=== PATIENT | female | born 1945 | race Caucasian/White ===

== ENCOUNTER 2019-08-07 11:14 | Outpatient (CLI) | payer MEDICARE, OTHER, SELFPAY ==
--- NOTE | ~2019-08-07 | MMUS_ITS ---
EXAMINATION: MM diagnostic mammo unilat RT, US breast RT limited HISTORY: Developing nodular densities reported on 07/16/2019 screening mammogram TECHNIQUE: Additional 3-D tomosynthesis images of the right breast were performed and synthetic 2-D i mages were generated. CAD analysis was submitted and interpreted. High resolution upper inner and upp er outer quadrant right breast ultrasound was performed. COMPARISON: 07/16/2019 bilateral digital screening mammogram FINDINGS: MAMMOGRAPHIC FINDINGS: There is mildly nodular fibroglandular stroma with possible 5 mm or smaller masses in the mid and out er upper right breast. ULTRASOUND: There is a parallel circumscribed sonolucency at 11:00 4 cm from the nipple measuring 4.1 x 1.9 x 3.4 mm, with no internal vascularity, likely a small cyst At 12:00 3 cm from the nipple there is a 2.7 x 1.4 x 3.2 mm parallel circumscribed sonolucency. There is no internal vascularity. This likely a small cyst. No suspicious mass or shadowing is detected. IMPRESSION: 1. No mammographic evidence of malignancy 2. Routine mammographic screening follow-up is recommended. BI-RADS Category 2: Benign finding(s). Reviewed, dictated and finalized at location A. [employer] PROCESSING IMPRESSION: 1. No mammographic evidence of malignancy 2. Routine mammographic screening follow-up is recommended. BI-RADS Category 2: Benign finding(s).
== END 2019-08-07 11:15 | disposition home or self-care (01) ==
LOC: ANHIMG 11:17
PROVIDERS: PCP Internal Medicine; Visit Provider Obstetrics & Gynecology
DX: R92.8 Other abnormal and inconclusive findings on diagnostic imaging of breast (principal)
CPT/HCPCS: 76642; 77065

== ENCOUNTER 2019-12-15 00:27 | Outpatient (CLI) | payer MEDICARE, OTHER, SELFPAY ==
[2019-12-15 17:13] LABS: SARS-CoV-2 RNA PCR Negative
== END 2019-12-15 00:28 | disposition home or self-care (01) ==
LOC: ANHCOVIDDT 00:27
PROVIDERS: PCP Internal Medicine; Visit Provider Internal Medicine Gastroenterology
DX: Z01.812 Encounter for preprocedural laboratory examination (principal); Z11.59 Encounter for screening for other viral diseases
CPT/HCPCS: 87635; C9803; U0003

== ENCOUNTER 2019-12-17 01:36 | Day surgery (SDC) | payer MEDICARE, OTHER, SELFPAY ==
[2019-12-11 12:11] VITALS: BMI 31.1
[2019-12-17 07:40] VITALS: BP 130/68; PULSE 64; RESP 16; TEMP 36.9; O2SAT 100; BMI 32.0
[2019-12-17] MEDS: LACTATED RINGERS 1,000 ML 150 ML IV CONT (08:08)
--- NOTE | 2019-12-17 08:12 | WPDANESEPPF ---
Anes - Initial Pre Proc Eval Procedure: Operation Date: 12/17/19 09:00 Proposed Procedures p Esophagogastroduodenoscopy - Rickey Almendarez MD Date/Time: 12/17/19 08:12 Surgeon: Rickey Almendarez MD Pre Op Diagnosis: Reflux Patient Data Age: 74 Gender: F Height: 1.5 m Weight: 72 kg Last Vital Signs Temp 36.9 C 12/17/19 07:40 Pulse 64 12/17/19 07:40 Resp 16 12/17/19 07:40 BP 130/68 12/17/19 07:40 Pulse Ox 100 12/17/19 07:40 Allergies Allergy/AdvReac Type Severity Reaction Status Date / Time codeine Allergy Unknown Vomiting Verified 12/17/19 07:39 Home Medications Medication Instructions Recorded Confirmed Type biotin 5,000 mcg disintegrating 10,000 mcg PO DAILY 05/01/19 12/11/19 History tablet calcium carbonate 500 mg calcium 500 mg PO DAILY 05/01/19 12/11/19 History (1,250 mg) tablet famotidine 10 mg tablet 10 mg PO DAILY PRN 05/01/19 12/11/19 History furosemide 20 mg tablet 20 mg PO BID #180 tablet 05/01/19 12/11/19 Rx gabapentin 300 mg capsule 300 mg PO DAILY 05/01/19 12/11/19 History levothyroxine 75 mcg tablet 75 mcg PO DAILY #90 tablet 05/01/19 12/11/19 Rx mecobalamin (vitamin B12) 1,000 1,000 mcg SUBLINGUAL DAILY 05/01/19 12/11/19 History mcg disintegrating tablet,sublingual apixaban 2.5 mg tablet 2.5 mg PO BID #180 tablet 05/27/19 12/11/19 Rx omeprazole 40 mg capsule,delayed 40 mg PO DAILY #90 cap 07/31/19 12/11/19 Rx release tramadol 50 mg tablet 50 mg PO QID PRN #120 tablet 11/18/19 12/11/19 Rx Patient hx anesthesia problems: none Family hx anesthesia problems: none PMFSH Past Medical History Medical History (Updated 12/11/19 @ 15:17 by Isabell Christensen NP) Blood clot in vein Bunion, right foot Removed 2013 Cataract 2010 Sgifxzv-Yydho-Azfxl disease Cholecystectomy planned 2007 Chronic back pain Colitis Connective tissue disease Cyst of breast Left breast cyst removed 2003 Cyst of breast Right breast cyst removed 2004 GERD (gastroesophageal reflux disease) H/O one miscarriage History of fracture History of measles, mumps, or rubella Hyperlipidemia Hypertension Hypokalemia Hypothyroidism MRSA (methicillin resistant Staphylococcus aureus) 2013 Osteoarthritis Osteopenia Recurrent UTI Skin disorder SLE (systemic lupus erythematosus) Surgical History Surgical History (Updated 05/01/19 @ 07:24 by Marilin Rodriguez [facility]) H/O Achilles tendon repair Left foot 2010 H/O section 1969 H/O gastric bypass 2015 H/O rotator cuff surgery Right 2008 H/O tubal ligation BL 1980 History of bilateral knee arthroplasty 2004 History of bladder surgery Bladder reconstruction 1968 Previous back surgery 2009 Family History Family History (Updated 04/30/19 @ 16:49 by Marilin Rodriguez CMA) Father Heart disease Mother Liver disease Social History Social History (Updated 05/01/19 @ 10:45 by Marilin Rodriguez CMA) Smoking status: Never smoker Alcohol intake: never Substance use: never Anes - Eval Final PreProcedure Day of Procedure 12/17/19 08:12 Patient weight: obese Heart: regular rate and rhythm Lungs: clear to auscultation and normal air movement Airway: Mallampati scale class 1 Neurological: alert and oriented Last oral intake: >/= 8 hours ASA classification: III Emergent: no Anesthetic plan: proceed Anesthesia type and monitoring: general GIVS and standard monitoring Informed Consent: The patient's anesthetic plan and its attendant risks and benefits were discussed with the patient/family/POA. Questions were solicited and answers provided to the satisfaction of the patient/family/POA.
--- NOTE | 2019-12-17 08:43 | PM.HPGS ---
History of Present Illness History of Present Illness Consent: Risks, benefits, and alternatives have been discussed and questions answered. Patient agrees to proceed with procedure. Chief complaint: Reflux Narrative: Lidia Hwang is a 74 year old W female referred for gastroscopy for evaluation of persistent chronic heartburn. Patient describes this has burning in her chest and the back of her throat. She did have a gastroscopy approximately 2010 which revealed esophagitis. She has been on proton pump inhibitors in the morning and Pepcid in the evening without resolution of her symptoms. She denies any dysphagia odynophagia. She was last Hospital in 2018 for diarrhea she was seen by Dr. corrales at that time a colonoscopy no obvious etiology was identified. Patient is status post gastric bypass with a Shaggy-en-Y procedure in 2014. patient denies any weight loss nausea vomiting hematemesis or melena. 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 [facility] Past Medical History Medical History (Updated 12/11/19 @ 15:17 by Isabell Christensen NP) Blood clot in vein Bunion, right foot Removed 2013 Cataract 2010 Qgpamhu-Baxid-Ntucp disease Cholecystectomy planned 2007 Chronic back pain Colitis Connective tissue disease Cyst of breast Left breast cyst removed 2004 Cyst of breast Right breast cyst removed 2004 GERD (gastroesophageal reflux disease) H/O one miscarriage History of fracture History of measles, mumps, or rubella Hyperlipidemia Hypertension Hypokalemia Hypothyroidism MRSA (methicillin resistant Staphylococcus aureus) 2013 Osteoarthritis Osteopenia Recurrent UTI Skin disorder SLE (systemic lupus erythematosus) Surgical History Surgical History (Updated 05/01/19 @ 07:24 by Marilin Rodriguez CMA) H/O Achilles tendon repair Left foot 2010 H/O section 1968 H/O gastric bypass 2014 H/O rotator cuff surgery Right 2008 H/O tubal ligation BL 1980 History of bilateral knee arthroplasty 2005 History of bladder surgery Bladder reconstruction 1968 Previous back surgery 2009 Family History Family History (Updated 04/30/19 @ 16:49 by Marilin Rodriguez CMA) Father Heart disease Mother Liver disease Social History Social History (Updated 05/01/19 @ 10:45 by Marilin Rodriguez CMA) Smoking status: Never smoker Alcohol intake: never Substance use: never Meds Home Medications and Allergies Home Medications Medication Instructions Recorded Confirmed Type biotin 5,000 mcg disintegrating 10,000 mcg PO DAILY 05/01/19 12/11/19 History tablet calcium carbonate 500 mg calcium 500 mg PO DAILY 05/01/19 12/11/19 History (1,250 mg) tablet famotidine 10 mg tablet 10 mg PO DAILY PRN 05/01/19 12/11/19 History furosemide 20 mg tablet 20 mg PO BID #180 tablet 05/01/19 12/11/19 Rx gabapentin 300 mg capsule 300 mg PO DAILY 05/01/19 12/11/19 History levothyroxine 75 mcg tablet 75 mcg PO DAILY #90 tablet 05/01/19 12/11/19 Rx mecobalamin (vitamin B12) 1,000 1,000 mcg SUBLINGUAL DAILY 05/01/19 12/11/19 History mcg disintegrating tablet,sublingual apixaban 2.5 mg tablet 2.5 mg PO BID #180 tablet 05/27/19 12/11/19 Rx omeprazole 40 mg capsule,delayed 40 mg PO DAILY #90 cap 07/31/19 12/11/19 Rx release tramadol 50 mg tablet 50 mg PO QID PRN #120 tablet 11/18/19 12/11/19 Rx Allergies Allergy/AdvReac Type Severity Reaction Status Date / Time codeine Allergy Unknown Vomiting Verified 12/17/19 07:39 Vital Signs Vital Signs - 24 hr 12/17/19 07:40 Temperature 36.9 C Pulse Rate 64 Respiratory Rate 16 Blood Pressure 130/68 Pulse Oximetry 100 Exam Const: Orientation/consciousness: patient oriented x3 Resp: Auscultation: clear to auscultation bilaterally Cardio: Rate: regular rate Rhythm: regular rhythm Heart sounds: no murmurs GI: GI Palp: Yes Soft to palpation, No Tenderness to palpation present (GI), Yes No hepatosplenomegaly present and No Palpabl
[2019-12-17] MEDS: BENZOCAINE (*SP) 60 ML SPRAY CAN (HURRICAINE) 1 SPRAY MUCOUS MEM (09:27)
[2019-12-17 09:38] VITALS: BP 110/47; PULSE 67; RESP 17; O2SAT 100
[2019-12-17 09:48] VITALS: BP 106/35; PULSE 70; RESP 17; O2SAT 100
[2019-12-17 09:58] VITALS: BP 113/57; PULSE 63; RESP 17; O2SAT 100
== END 2019-12-17 10:30 | disposition home or self-care (01) ==
PROVIDERS: PCP Internal Medicine; Visit Provider Internal Medicine Gastroenterology
PROC: 0DJ08ZZ Inspection of Upper Intestinal Tract, Via Natural or Artificial Opening Endoscopic (ICD-10-PCS; CPT 43235; principal; 2019-12-17 09:00)
DX: K21.9 Gastro-esophageal reflux disease without esophagitis (principal); Z98.84 Bariatric surgery status; I10 Essential (primary) hypertension; E78.5 Hyperlipidemia, unspecified; E03.9 Hypothyroidism, unspecified; M32.9 Systemic lupus erythematosus, unspecified; Z79.01 Long term (current) use of anticoagulants; E66.9 Obesity, unspecified; Z68.32 Body mass index [BMI] 32.0-32.9, adult
CPT/HCPCS: 43235; J2704; J7120

== ENCOUNTER 2020-08-13 15:29 | Outpatient (CLI) | payer MEDICARE, OTHER, SELFPAY ==
--- NOTE | ~2020-08-13 | MM_ITS ---
EXAMINATION: MM screening [facility] [place] HISTORY: Screening TECHNIQUE: Craniocaudal and mediolateral oblique 3-D tomosynthesis images were obtained and synthetic 2-D images were generated. CAD analysis was submitted and interpreted. COMPARISON: Comparison to multiple prior studies sequentially, with oldest reviewed study dated 03/25. BREAST PARENCHYMAL COMPOSITION: Breast composed of scattered areas of fibroglandular density. FINDINGS: There is no evidence of suspicious mass, calcification, or architectural distortion to sugg est malignancy in either breast. There has been no suspicious interval change. IMPRESSION: 1. No mammographic evidence of malignancy. 2. Recommend routine screening mammography in one year. BI-RADS Category 1: Negative Reviewed, dictated and finalized at location A. MANAGER
== END 2020-08-13 15:30 | disposition home or self-care (01) ==
PROVIDERS: PCP Internal Medicine; Visit Provider Internal Medicine
DX: Z12.31 Encounter for screening mammogram for malignant neoplasm of breast (principal)
CPT/HCPCS: 77063; 77067

== ENCOUNTER 2020-09-09 13:41 | Outpatient (CLI) | payer MEDICARE, OTHER, SELFPAY ==
--- NOTE | ~2020-09-09 | DEXA_ITS ---
Bone Density Report Name: Lidia Hwang Age: 75 Sex: Female Ethnicity: White Date of : 1945 Indication: osteopenia; height loss; prior fracture; postmenopausal Referring Provider: Azeb Olmstead Study: Bone densitometry was performed. Exam Date: September 09, 2020 Accession number: [id number] Bone Density: Region BMD T-score Z-score Classification AP Spine (L1, L2, L3) 1.132 1.0 3.3 Normal Femoral Neck (Left) 0.541 -2.8 -0.7 Osteoporosis Total Hip (Left) 0.774 -1.4 0.4 Osteopenia Total Hip Bilateral Avg 0.788 -1.3 0.5 Osteopenia Femoral Neck (Right) 0.560 -2.6 -0.6 Osteoporosis Total Hip (Right) 0.801 -1.2 0.6 Osteopenia World Health Organization criteria for BMD impression classify patients as: Normal (T-score at or above -1.0), Osteopenia (T-score between -1.0 and -2.5), or Osteoporosis (T-score at or below -2.5). 10-year Fracture Risk: FRAX not reported because: Some T-score for Spine Total or Hip Total or Femoral Neck at or below -2.5 Previous Exams: Region Exam Age BMD T-score BMD Change BMD Change Date g/cm2 vs Baseline vs Previous AP Spine(L1, L2, L3) 09/09/2020 75 1.132 1.0 0.099(9.6%)# 0.083(7.9%)* 04/27/2016 70 1.049 0.3 0.017(1.6%)# -0.084(-7.4%)# 10/26/2009 64 1.133 1.0 0.101(9.8%)* 0.088(8.4%)* 06/12/2006 60 1.045 0.2 0.013(1.3%) -0.139(-11.7%) 03/28/2004 58 1.184 1.5 0.152(14.7%)* 0.152(14.7%)* 09/14/2001 56 1.032 0.1 Total Hip(Left) 09/09/2020 75 0.774 -1.4 -0.143(-15.6%) -0.013(-1.6%) 04/27/2016 70 0.787 -1.3 -0.131(-14.3%) -0.006(-0.7%)# 10/26/2009 64 0.793 -1.2 -0.125(-13.6%) -0.046(-5.5%)* 06/12/2006 60 0.839 -0.8 -0.079(-8.6%)* -0.023(-2.7%) 03/28/2004 58 0.862 -0.7 -0.056(-6.1%)* -0.056(-6.1%)* 09/14/2001 56 0.918 -0.2 Total Hip(Right) 09/09/2020 75 0.801 -1.2 -0.185(-18.7%) 0.019(2.4%) 04/27/2016 70 0.782 -1.3 -0.203(-20.6%) -0.075(-8.7%)# 10/26/2009 64 0.857 -0.7 -0.129(-13.1%) -0.020(-2.3%) 06/12/2006 60 0.877 -0.5 -0.109(-11.0%) -0.042(-4.6%)* 03/28/2004 58 0.919 -0.2 -0.067(-6.8%)* -0.067(-6.8%)* 09/14/2001 56 0.986 0.4 *Denotes significance at 95% confidence level, LSC for AP Spine = 0.022 g/cm2, LSC for Total Hip = 0.027 g/cm2 Clinical Information Provided by Patient: Has had a low trauma fracture Has used the following medications: Vitamin D, Calcium Patient maximum height was 60 No regular weight bearing exercise Does not regularly con
== END 2020-09-09 13:42 | disposition home or self-care (01) ==
LOC: ANHIMG 13:44
PROVIDERS: PCP Internal Medicine; Visit Provider Nurse Practitioner
DX: M81.0 Age-related osteoporosis without current pathological fracture (principal); M85.852 Other specified disorders of bone density and structure, left thigh; M85.851 Other specified disorders of bone density and structure, right thigh
CPT/HCPCS: 77080

== ENCOUNTER 2020-09-15 14:21 | Outpatient (CLI) | payer MEDICARE, OTHER, SELFPAY ==
--- NOTE | 2020-09-15 15:06 | ECHO_ITS ---
Patient Info Name: Lidia Hwang Age: 75 years : 1945 Gender: Female Ht: 60 in Wt: 160 lbs BSA: 1.78 m2 HR: 65 bpm BP: 149 / 63 mmHg Heart Rhythm: Sinus Rhythm Technical Quality: Good Exam Date: 09/15/2020 3:29 PM Exam Location: [facility] Patient Status: Outpatient Admit Date: 09/15/2020 Staff Ordering Physician: Azeb Olmstead NP Manufacturing Project Engineer: Shoshana Gasca RDCS Attending Provider: Azeb Olmstead NP Referring Physician: Ishan ELLISON; Exam Type: CA echo doppler color flow Study Info Indications - murmur Complete two-dimensional, color flow and Doppler transthoracic echocardiogram is performed. Summary 1. Complete two-dimensional, color flow and Doppler transthoracic echocardiogram is performed. 2. Normal left ventricular size and thickness with good contractility of all segments. The ejection fraction is 70%. Grade 1 diastolic dysfunction is present. 3. Left atrial chamber dimension is mildly enlarged. 4. There is moderate aortic valve stenosis with a peak velocity of 319 cm/s, mean gradient of 28 mmHg, and aortic valve area of 1.1 cm2. 5. No pulmonary hypertension, estimated pulmonary arterial systolic pressure is 34 mmHg. 6. Normal sinus rhythm. Left Ventricle Left ventricular chamber dimension is normal. Left ventricular systolic function is normal, estimated at 60-65%. There is no increased left ventricular wall thickness. Left ventricular septal wall motion is normal. The left ventricular diastolic function is grade I diastolic dysfunction. Right Ventricle Right ventricular chamber dimension is normal. Right ventricular systolic function is normal. Left Atria Left atrial chamber dimension is mildly enlarged. Right Atria Right atrial chamber dimension is normal. Aortic Valve The aortic valve is trileaflet. There is no aortic valve sclerosis. There is moderate aortic valve stenosis with a peak velocity of 319 cm/s, mean gradient of 28 mmHg, and aortic valve area of 1.1 cm2. There is no aortic valve regurgitation. There is mild aortic valve calcification. Pulmonic Valve The pulmonic valve is normal. There is no pulmonic valve stenosis. There is no pulmonic regurgitation. Mitral Valve The mitral valve has calcified annulus. There is no mitral valve stenosis. There is trace mitral valve regurgitation. Tricuspid Valve The tricuspid valve leaflets are normal. There is no significant tricuspid valve stenosis. There is trace tricuspid valve regurgitation. No pulmonary hypertension, estimated pulmonary arterial systolic pressure is 34 mmHg. Pericardium/Pleural The pericardium appears normal. There is no pericardial effusion. Inferior Vena Cava Normal inferior vena cava with >50% collapse upon inspiration consistent with Empty right atrial pressure, 10 mmHg. Aorta The aortic root size at the sinus of Valsalva is normal. The prox ascending aorta size is normal. There is mild aortic atherosclerosis. Left Ventricular Outflow Tract Name Value Normal LVOT 2D LVOT Diameter 2.0 cm LVOT Doppler LVOT Peak Gradient 6 mm
[2020-09-15 15:09] LABS: Anion Gap 3 mmol/L (8-16); Blood Urea Nitrogen 29 mg/dL (7-17); Calcium 8.6 mg/dL (8.4-10.2); Carbon Dioxide 30 mmol/L (22-30); Chloride 107 mmol/L (98-107); Estimated Glomerular Filt Rate > 60; Glucose 94 mg/dL (65-105); Sodium 140 mmol/L (137-145)
== END 2020-09-15 14:22 | disposition home or self-care (01) ==
LOC: ANHCARD 14:23
PROVIDERS: PCP Internal Medicine; Visit Provider Nurse Practitioner
DX: R01.1 Cardiac murmur, unspecified (principal); I10 Essential (primary) hypertension
CPT/HCPCS: 36415; 80048; 93306

== ENCOUNTER 2020-12-23 12:30 | Outpatient (RCR) | payer MEDICARE, OTHER, SELFPAY ==
--- NOTE | 2020-11-25 13:41 | PTOPEVAL ---
PHYSICAL THERAPY EVALUATION AND PLAN OF CARE 11-25-20 Thank you for referring Lidia Hwang to [facility].? She is scheduled to be seen for therapy? 2 x/week for 4 weeks. Please review, sign, date and return this plan of care OKSANA. I agree with and certify that the following plan of care is medically necessary. Referring Physician Date Attending Provider: Isabell Christensen, CELESTE *PT Outpatient Evaluation Document 11/25/20 12:35 AG (Rec: 11/25/20 13:40 AG [id number]) Past Medical History Source of Past Medical History Recalled from Previous Visit, Confirmed with Patient/Family Neurological History Hx Neurological Disorders No Significant History Cardiovascular History Hx Heart Murmur Yes: monitoring, to follow up with control and recovery special tactics Respiratory History Hx Respiratory Disorders No Significant History Gastrointestinal History Hx Cholecystectomy Yes Hx Colitis Yes Hx Gastric Bypass Surgery Yes Hx Gastroesophageal Reflux Disease Yes Genitourinary History Hx Urinary Tract Infection Yes Hx Other Genitourinary Disorders Yes: BLADDER RECONSTRUCTION Musculoskeletal History Hx Arthritis Yes: hands, feet, back Hx Back Pain Yes Hx Joint Replacement Yes: BILATERAL KNEE Hx Orthopedic Surgery Yes: RIGHT ROTATOR CUFF, B FOOT SURGERY-L achilles tendon &R toe/foot Hx Spinal Surgery Yes: lumbar fusion; Hx Other Musculoskeletal Disorders Yes: Charot Lashay Tooth; R tib fx; Hematological History Hx Other Hematological Disorders Yes: pulmonary embolis-- multiple times-IVC, lung and B LE's-on blood thinner Endocrine History Hx Hypothyroidism Yes HEENT History Hx Cataracts Yes Integumentary History Hx Other Skin Disorders Yes: skin LUPUS Reproductive History Hx Section Yes Hx Tubal Ligation Yes Psychosocial History Hx Psychiatric Disorders No Significant History Pain History History of Any Previous or Ongoing No Significant History Instance of Pain Anesthesia History Hx Post-Op Nausea/Vomiting Yes Other History Hx MRSA Yes Evaluation Information Problem Diagnosis low back pain, gait/imbalance disorder Onset about one year ago Subjective Information chronic back pain since lumbar Query Text:As Reported By Patient/ fusion in 2007; gradual Family increase in pain; had spinal injections by pain management
--- NOTE | 2020-12-21 13:03 | PCPTNOTE ---
Patient called & cancelled scheduled appointment this date due to having a headache and not sleeping well last night.
--- NOTE | 2020-12-23 14:55 | PTOPEVAL ---
PHYSICAL THERAPY DISCHARGE 12-23-20 Refer to the clinical summary below, for her status with today's discharge, compared to the initial evaluation. The goals were partially achieved. Education has been completed for home exercises, posture and pain management techniques. Thank you for referring Lidia Hwang to [facility].? Please review, sign, date and return this Discharge OKSANA. I agree with and certify that the following plan of care is medically necessary. Referring Physician Date Attending Provider: Isabell Christensen NP Document 12/23/20 12:39 AG (Rec: 12/23/20 13:34 AG [id number]) Assessment Status Discharge Subjective Information Lidia reports: back feel Query Text:As Reported By Patient/ about the same, but stronger Family and balance is a little better with walking; have been having problems sleeping, have not slept much at all over the past 2 nights; have not been good to do her exercises at home, they did make her sore and hurt a little more; Pain Assessment Timing of Pain Assessment Timing of Pain Assessment Assessment Pain Scale Pain Scale Used Numeric (1 - 10) Self Report Pain Assessment Bilateral Spine, Lumbar Reported Pain Level 4 Pain Description Aching Pain Radiation Left Leg,Right Leg Radicular Pain Location R & L LE post thigh to knee, sometime in calf Pain Frequency Chronic,Continuous Lowest Pain Intensity 4 Greatest Pain Intensity 8 Pain Aggravating Factors Sitting,Walking,Weight Bearing /Standing Pain Behaviors Anxious,Grimacing,Guarding Pain Score Pain Score 4: Self Report Additional Pain Score Comments Oswestry self assessment score of 44% limitation; reported tolerances with sitting 1 hour and walking 1 block; heat to her back, makes her skin break out; discussed aquatic exercises, pt is not interested in water exercises; discussed HEP, pt reports do not hurt when doing them, but hurts later in day; have not been doing exercises very much because do not want to hurt; at home, doing home task
== END 2020-12-24 10:05 | disposition home or self-care (01) ==
LOC: ANHPT 12:30
PROVIDERS: PCP Internal Medicine; Visit Provider Nurse Practitioner
DX: M54.5 Low back pain (principal); G89.29 Other chronic pain; R26.89 Other abnormalities of gait and mobility
CPT/HCPCS: 97014; 97110; 97140; 97162; G0283

== ENCOUNTER 2021-03-17 18:33 | Emergency (ER) | payer MEDICARE, OTHER, SELFPAY ==
--- NOTE | ~2021-03-17 | CT_ITS ---
EXAMINATION: CT abdomen pelvis wo con DATE: 03/17/2021 20:17 INDICATION: Left flank pain. TECHNIQUE: Computed tomography (CT) of the abdomen and pelvis was performed without intravenous contr ast. Automated exposure control and iterative reconstruction technique were employed. The dose-length product was 562.93 mGy-cm. COMPARISON: 04/06/2019 FINDINGS: Mild bibasilar atelectasis at the posterior sulci. Heart size is normal. No pericardial or pleural ef fusion. Small sliding-type hiatal hernia with change of prior Shaggy-en-Y gastric bypass procedure. A f ew tiny hepatic and splenic calcifications consistent with old granulomatous disease. Unchanged moder ate dilation of the common bile duct and mild intrahepatic or ductal dilation likely related to prior cholecystectomy with surgical clips at the gallbladder fossa. Pancreas, bilateral adrenal glands and right kidney are normal. Cortical scarring at the upper pole of the left kidney with multiple surrou nding surgical clips likely sequela of prior partial nephrectomy. Infrarenal IVC filter. There is mil d colonic diverticulosis with a sigmoid predominance. There is no adjacent inflammatory change to bebee ggest diverticulitis. Small bowel and appendix are normal. Bladder and anteverted uterus are normal. Tiny fat-containing umbilical hernia. No free intraperitoneal gas or fluid. No pathologically enlarge d abdominal or pelvic lymphadenopathy. Chronic mild L1 compression fracture. Moderate lumbar spondylo sis with L3-4 mm anterolisthesis L4 on L5. Combined instrumented anterior and posterior spinal fusion at L5-S1 with bone graft harvest site along the left posterior iliac spine. IMPRESSION: 1. No acute intra-abdominal/pelvic process. 2. Small sliding-type hiatal hernia and changes of prior Shaggy-en-Y gastric bypass procedure. 3. Postoperative change of prior partial left nephrectomy, cholecystectomy and instrumented anterior and posterior L5-S1 spinal fusion. 4. Infrarenal IVC filter. Reviewed, dictated and finalized at location A. IMPRESSION: 1. No acute intra-abdominal/pelvic process. 2. Small sliding-type hiatal hernia and changes of prior Shaggy-en-Y gastric bypa ss procedure. 3. Postoperative change of prior partial left nephrectomy, cholecystectomy and instrumented anterior and posterior L5-S1 spinal fusion. 4. Infrarenal IVC filter.
[2021-03-17 18:44] VITALS: BP 111/86; PULSE 76; RESP 18; TEMP 37.2; O2SAT 100
[2021-03-17 19:09] LABS: Add Urine Microscopic? NO; Appearance Urine Clear (Clear); Bilirubin Urine Negative (Negative); Blood Urine Negative (Negative); Color Urine Yellow (Yellow); Glucose Urine UA Negative (Negative); Ketones Urine Negative (Negative); Leukocyte Esterase Ur Negative LEU/UL (Negative); Nitrate Urine Negative (Negative); Protein Urine Negative (Negative); Specific Grav Ur 1.016 (1.001-1.035); Urobilinogen Urine Negative mg/dL (<2.0)
--- NOTE | 2021-03-17 20:50 | ED.CHESTPAIN ---
HPI - Chest Pain General Chief Complaint: Urogenital-Female Stated Complaint: BLOOD IN URINE Time Seen by Provider: 03/17/21 19:35 Source: patient Mode of arrival: ambulatory Limitations: no limitations History of Present Illness HPI narrative: Patient presents for evaluation of noting blood after urinating prior to arrival. Patient states that 2 days ago she was diagnosed with a UTI and placed on antibiotic. Patient states that she had noted some burning with urination at that time. Patient reports that she began having a pain to her low left flank yesterday and today after urinating she was wiping and noticed blood. Patient denies any fever, chills, nausea, vomiting, diarrhea. Patient denies known history of kidney stones. Patient denies history of irregular vaginal bleeding. Related Data Home Medications Medication Instructions Recorded Confirmed biotin 5,000 mcg disintegrating 10,000 mcg PO DAILY 05/01/19 02/10/21 tablet calcium carbonate 500 mg calcium 500 mg PO DAILY 05/01/19 02/10/21 (1,250 mg) tablet famotidine 10 mg tablet 10 mg PO DAILY PRN 05/01/19 02/10/21 mecobalamin (vitamin B12) 1,000 1,000 mcg SUBLINGUAL DAILY 05/01/19 02/10/21 mcg disintegrating tablet,sublingual valacyclovir 1 gram tablet 1,000 mg PO DAILY 02/10/21 02/10/21 Allergies Allergy/AdvReac Type Severity Reaction Status Date / Time codeine Allergy Unknown Vomiting Verified 03/17/21 19:58 nitrofurantoin Allergy Sweating Verified 03/17/21 19:58 and Hives Review of Systems Review of Systems: CONSTITUTIONAL: Denies fever, chills, or sweats. EYES: Denies visual changes, redness, or discharge. ENT: Denies rhinorrhea, congestion, sore throat, or otalgia. CARDIOVASCULAR: Denies chest pain, palpitations, or edema. RESPIRATORY: Denies cough or dyspnea. GASTROINTESTINAL: Denies abdominal pain, nausea, vomiting, or diarrhea. GENITOURINARY: Reports dysuria or hematuria. SKIN: Denies rash or itching. MUSCULOSKELETAL: Denies back pain, joint pain, or myalgia. NEUROLOGIC: Denies headache, numbness, dizziness, or weakness. PSYCHIATRIC: Denies anxiety or depression. [facility] Past Medical History Medical History Blood clot in vein Bunion, right foot Removed 2013 Cataract 2011 Yrvslfb-Yezup-Yrydd disease Cholecystectomy planned 2007 Chronic back pain Colitis Connective tissue disease Cyst of breast Left breast cyst removed 2003 Cyst of breast Right breast cyst removed 2004 GERD (gastroesophageal reflux disease) H/O one miscarriage History of fracture History of measles, mumps, or rubella Hyperlipidemia Hypertension Hypokalemia Hypothyroidism MRSA (methicillin resistant Staphylococcus aureus) 2013 Osteoarthritis Osteopenia Recurrent UTI Skin disorder SLE (systemic lupus erythematosus) Surgical History Surgical History (Updated 05/01/19 @ 07:24 by Marilin Mai [facility]) H/O Achilles tendon repair Left foot 2010 H/O section 1968 H/O gastric bypass 2014 H/O rotator cuff surgery Right 2008 H/O tubal ligation BL 1980 History of bilateral knee arthroplasty 2004 History of bladder surgery Bladder reconstruction 1968 Previous back surgery 2009 Family History Family History Father Heart disease Mother Liver disease Social History Social History Smoking status: Never smoker Second hand tobacco smoke exposure: No Alcohol intake: never Substance use: never Gender identity (if verbalized by the patient): Female Sexual Orientation (if Verbalized by the Patient): Straight or Heterosexual Spiritual care concerns: No Exam Narrative: GENERAL: Well-appearing, well-nourished, and in no acute distress. HEAD: Normocephalic, atraumatic. EYES: PERRLA and EOMI. NECK: Supple. No adenopathy or masses. CHEST: Clear to auscultation. No
[2021-03-17 21:13] VITALS: BP 110/84; PULSE 78; RESP 18; O2SAT 100
== END 2021-03-17 21:14 | disposition home or self-care (01) ==
PROVIDERS: Emergency Provider Emergency Medicine; PCP Urology
DX: N30.01 Acute cystitis with hematuria (principal); G60.0 Hereditary motor and sensory neuropathy; K21.9 Gastro-esophageal reflux disease without esophagitis; E78.5 Hyperlipidemia, unspecified; I10 Essential (primary) hypertension; Z86.14 Personal history of Methicillin resistant Staphylococcus aureus infection; M85.80 Other specified disorders of bone density and structure, unspecified site; M19.90 Unspecified osteoarthritis, unspecified site; Z87.440 Personal history of urinary (tract) infections; M32.9 Systemic lupus erythematosus, unspecified; Z98.84 Bariatric surgery status; K44.9 Diaphragmatic hernia without obstruction or gangrene
CPT/HCPCS: 74176; 81003; 99284

== ENCOUNTER 2021-08-15 14:25 | Outpatient (CLI) | payer MEDICARE, OTHER, SELFPAY ==
--- NOTE | ~2021-08-15 | MM_ITS ---
EXAMINATION: MM screening [facility] BI w venita HISTORY: Screening mammogram TECHNIQUE: Craniocaudal and mediolateral oblique 3-D tomosynthesis images were obtained and synthetic 2-D images were generated. CAD analysis was submitted and interpreted. COMPARISON: August 13, 2020 bilateral screening mammogram August 07, 2019 diagnostic right mammogram and limited right breast ultrasound July 16, 2019, 06/20/2018 bilateral screening mammogram examinations BREAST PARENCHYMAL COMPOSITION: There are scattered areas of fibroglandular density. FINDINGS: Again noted are multiple scattered bilateral benign calcifications. There is no evidence of suspicious mass, calcification, or architectural distortion to suggest malignancy in either breast. There has been no suspicious interval change. IMPRESSION: 1. No mammographic evidence of malignancy. 2. Recommend routine screening mammography in one year. BI-RADS Category 2: Benign finding(s). Reviewed, dictated and finalized at location A. ER STACKER
== END 2021-08-15 14:26 | disposition home or self-care (01) ==
LOC: ANHIMG 14:26
PROVIDERS: PCP Internal Medicine; Visit Provider Nurse Practitioner Obstetrics & Gynecology
DX: Z12.31 Encounter for screening mammogram for malignant neoplasm of breast (principal)
CPT/HCPCS: 77063; 77067

== ENCOUNTER 2021-08-22 12:44 | Outpatient (CLI) | payer MEDICARE, OTHER, SELFPAY ==
[2021-08-22 13:52] LABS: Basophils Percent Auto 0.7 % (0.2-1.2); Eosinophils Absolute Auto 0.1 K/mm3 (0-0.3); Eosinophils Percent Auto 0.8 % (0-4.4); Hematocrit 33.7 % (37.0-47.0); Hemoglobin 10.3 g/dL (12.0-15.0); Immature Granulocyte Absolute 0.01 K/mm3 (0.00-0.031); Immature Granulocyte Percent A 0.2 % (0-0.5); Lymphocytes Absolute Auto 0.97 K/mm3 (0.9-3.2); Lymphocytes Percent Auto 16.1 % (18.3-44.2); Mean Corpuscular HGB Conc 30.6 g/dl (32-36); Mean Corpuscular Hemoglobin 28.5 pg (26-34); Mean Corpuscular Volume 93.4 fl (80-100); Mean Platelet Volume 11.3 fl (7.4-10.4); Monocytes Absolute Auto 0.4 K/mm3 (0.1-0.6); Monocytes Percent Auto 6.8 % (2.6-8.5); Neutrophils Absolute Auto 4.5 K/mm3 (1.3-6.7); Neutrophils Percent Auto 75.4 % (45.5-73.1); Platelet Count Result 260 k/mm3 (150-375); Red Blood Count 3.61 M/mm3 (4.2-5.4); Red Cell Distribution Width 18.2 % (11.5-14.5)
[2021-08-22 14:23] LABS: Vitamin D 25 Hydroxy 50.1 ng/mL
[2021-08-22 22:06] LABS: Iron 39 ug/dL (37-170)
[2021-08-22 22:12] LABS: Percent Iron Saturation 9 % (20-50)
[2021-08-23 22:52] LABS: PCP NEGATIVE ng/mL (<25)
[2021-08-25 15:26] LABS: Amphetamines NEGATIVE; Marijuana Metabolites NEGATIVE
[2021-08-25 15:27] LABS: Barbiturates NEGATIVE; Benzodiazepines NEGATIVE; Cocaine Metabolites NEGATIVE
== END 2021-08-22 12:45 | disposition home or self-care (01) ==
LOC: ANHLAB 12:52
PROVIDERS: PCP Internal Medicine; Visit Provider Nurse Practitioner
DX: D64.9 Anemia, unspecified (principal); D72.819 Decreased white blood cell count, unspecified; E55.9 Vitamin D deficiency, unspecified; M81.0 Age-related osteoporosis without current pathological fracture
CPT/HCPCS: 36415; 80307; 82306; 82728; 83540; 83550; 85025

== ENCOUNTER 2021-09-01 14:10 | Outpatient (CLI) | payer MEDICARE, OTHER, SELFPAY ==
[2021-09-01 15:54] LABS: Folic Acid > 20.0 ng/mL (2.76->20); Vitamin B12 > 1000.0 pg/mL (239-931)
== END 2021-09-01 14:11 | disposition home or self-care (01) ==
PROVIDERS: PCP Internal Medicine; Visit Provider Nurse Practitioner
DX: D64.9 Anemia, unspecified (principal)
CPT/HCPCS: 36415; 82607; 82746

== ENCOUNTER 2021-11-28 11:26 | Outpatient (CLI) | payer MEDICARE, OTHER, SELFPAY ==
[2021-11-28 12:06] LABS: Basophils Percent Auto 1.3 % (0.2-1.2); Eosinophils Absolute Auto 0.1 K/mm3 (0-0.3); Eosinophils Percent Auto 1.9 % (0-4.4); Hematocrit 37.5 % (37.0-47.0); Hemoglobin 11.9 g/dL (12.0-15.0); Immature Granulocyte Absolute 0.01 K/mm3 (0.00-0.031); Immature Granulocyte Percent A 0.3 % (0-0.5); Lymphocytes Percent Auto 28.5 % (18.3-44.2); Mean Corpuscular HGB Conc 31.7 g/dl (32-36); Mean Corpuscular Volume 97.7 fl (80-100); Mean Platelet Volume 10.6 fl (7.4-10.4); Monocytes Absolute Auto 0.3 K/mm3 (0.1-0.6); Monocytes Percent Auto 7.9 % (2.6-8.5); Neutrophils Absolute Auto 1.9 K/mm3 (1.3-6.7); Neutrophils Percent Auto 60.1 % (45.5-73.1); Platelet Count Result 229 k/mm3 (150-375); Red Blood Count 3.84 M/mm3 (4.2-5.4); Red Cell Distribution Width 17.6 % (11.5-14.5); White Blood Count 3.2 K/mm3 (4.5-10.0)
== END 2021-11-28 11:27 | disposition home or self-care (01) ==
PROVIDERS: PCP Internal Medicine; Visit Provider Nurse Practitioner
DX: D64.9 Anemia, unspecified (principal)
CPT/HCPCS: 36415; 82728; 85025

== ENCOUNTER 2022-02-13 14:52 | Outpatient (CLI) | payer MEDICARE, OTHER, SELFPAY ==
[2022-02-13 15:16] LABS: Basophils Absolute Auto 0.1 K/mm3 (0.0-0.1); Eosinophils Percent Auto 0.4 % (0-4.4); Hematocrit 39.2 % (37.0-47.0); Hemoglobin 12.7 g/dL (12.0-15.0); Immature Granulocyte Absolute 0.01 K/mm3 (0.00-0.031); Immature Granulocyte Percent A 0.2 % (0-0.5); Lymphocytes Absolute Auto 1.05 K/mm3 (0.9-3.2); Lymphocytes Percent Auto 21.4 % (18.3-44.2); Mean Corpuscular HGB Conc 32.4 g/dl (32-36); Mean Corpuscular Hemoglobin 32.2 pg (26-34); Mean Corpuscular Volume 99.5 fl (80-100); Monocytes Absolute Auto 0.3 K/mm3 (0.1-0.6); Monocytes Percent Auto 6.3 % (2.6-8.5); Neutrophils Absolute Auto 3.5 K/mm3 (1.3-6.7); Neutrophils Percent Auto 70.7 % (45.5-73.1); Platelet Count Result 250 k/mm3 (150-375); Red Blood Count 3.94 M/mm3 (4.2-5.4); Red Cell Distribution Width 15.8 % (11.5-14.5); White Blood Count 4.9 K/mm3 (4.5-10.0)
[2022-02-13 15:25] LABS: Alanine Aminotransferase 13 U/L (6-35); Albumin Level 3.2 g/dL (3.5-5.1); Alkaline Phosphatase 91 U/L (38-126); Anion Gap 2 mmol/L (8-16); Aspartate Amino Transferase 22 U/L (14-36); Blood Urea Nitrogen 17 mg/dL (7-17); Calcium 8.6 mg/dL (8.4-10.2); Carbon Dioxide 32 mmol/L (22-30); Chloride 102 mmol/L (98-107); Estimated Glomerular Filt Rate > 60; Glucose 95 mg/dL (65-110); Potassium 3.8 mmol/L (3.4-5.0); Sodium 136 mmol/L (137-145)
[2022-02-13 15:55] LABS: Iron 58 ug/dL (37-170)
[2022-02-13 16:04] LABS: Percent Iron Saturation 21 % (20-50)
[2022-02-13 16:32] LABS: Folic Acid > 20.0 ng/mL (2.76->20); Vitamin B12 > 1000.0 pg/mL (239-931)
[2022-02-18 22:39] LABS: Anti Nuclear Antibody Pattern Nuclear, Speckled
== END 2022-02-13 14:53 | disposition home or self-care (01) ==
PROVIDERS: PCP Internal Medicine; Visit Provider Internal Medicine Hematology & Oncology
DX: D72.819 Decreased white blood cell count, unspecified (principal); D64.9 Anemia, unspecified
CPT/HCPCS: 36415; 80053; 82607; 82728; 82746; 83540; 83550; 85025; 86038; 86039

== ENCOUNTER 2022-02-22 09:02 | Outpatient (CLI) | payer MEDICARE, OTHER, SELFPAY ==
--- NOTE | ~2022-02-22 | US_ITS ---
EXAMINATION: US abdomen complete DATE: 02/22/2022 09:56 INDICATION: Leukopenia TECHNIQUE: Multiple grayscale and Doppler ultrasound images of the abdomen were obtained. COMPARISON: CT, 03/17/2021 FINDINGS: Bowel gas obscures visualization of the pancreas. The visualized portions of the pancreas a re unremarkable. The liver demonstrates increased echogenicity, heterogenous echotexture, and decreas ed through transmission. No surface nodularity. Normal hepatopetal flow in the main portal vein. The gallbladder is surgically absent. The normal common bile duct measures 7 mm. The visualized portions of the aorta and inferior vena cava are normal. The right kidney measures 10.7 x 3.6 x 4.3 cm. The left kidney measures 9.8 x 4.7 x 5.4 cm. The kidne ys demonstrate normal parenchymal echogenicity. There is no hydronephrosis. The spleen is normal in a ppearance and measures 11.4 cm. IMPRESSION: 1. Diffuse hepatic steatosis. Reviewed, dictated and finalized at location A.
== END 2022-02-22 09:03 | disposition home or self-care (01) ==
PROVIDERS: PCP Internal Medicine; Visit Provider Internal Medicine Hematology & Oncology
DX: D72.819 Decreased white blood cell count, unspecified (principal); K76.0 Fatty (change of) liver, not elsewhere classified
CPT/HCPCS: 76700

== ENCOUNTER 2022-06-12 12:30 | Outpatient (RCR) | payer MEDICARE, OTHER, SELFPAY ==
--- NOTE | 2022-05-15 16:15 | PTOPEVAL1 ---
Assessment and note entered by Damien Lux, PT Evaluation Information Assessment Status Evaluation Diagnosis other abnormalities of gait and mobility Onset chronic Subjective Information Patient reports she has had decreased sensation on TERE LE for a while, but with the back and sciatica pain it is making it harder to walk around. She does use a straight cane to get around for longer distances and reports she feels more secure and in less pain with it, but she does not want to appear old. She reports increase in symptoms when busy like she was last week with her holiday decorating. Trouble sleeping and does use tramadol and a topical rub to help with the pain. Reported Pain Level Pain Score 1: Self Report Additional Pain Score Comments although she reports it is from her back she is having the achiness in her legs especially mid- thighs Assessment PT Clinical Summary Merritt is a 76 year old female coming into the clinic with TERE sciatic pain worse on the R side. She also demonstrates decreased balance with 0/10 [place] monofilament testing, a 20/28 Tinetti and Dynamic gait index score of 13/24. Patient has tight hamstrings and IT bands that need to be stretches out along with back, abdominal, and hip strengthening. I believe physical therapy can help reduce the patient's pain with stretching, modalities, and manual therapy along with stretching and strengthening to keep the patient's body in better alignment. Patient also would benefit from education on potential orthotic and assistive device to help with balance and take pressure off of the back. Plan of Care Interventions Check Out for Orthotic/Pr,Electrical Stimulation, Gait Training,Hot Pack/Cold Pack,Manual Therapy, Mechanical Traction,Neuro Re-education,Patient/ Caregiver Education,Therapeutic Activities, Therapeutic Exercise,Ultrasound PT Services Indicated Yes Treatment Frequency and 1-2x/wk 4 weeks Duration These treatments will address the objective and functional deficits as defined above. The patient will be advanced safely and appropriately in order for the patient to progress towards his/her prior level of function. Additional exercises will be introduced and as well as a comprehensive home exercise program upon discharge, if needed, ?to ensure carryover of functional gains achieved in the clinic. This treatment plan has been reviewed and agreement upon by the patient.
--- NOTE | 2022-06-12 13:58 | PTOPDC ---
Assessment and note entered by Damien Lux, PT Evaluation Information Assessment Status Discharge Diagnosis abnormalities of gait and mobility Onset chronic Subjective Information Lidia reports the pain is a little better but still there. She reports she is doing better with energy conservation to not overdo too much at one time. Patient also more receptive to using her can when out instead of walking without it. Patient admits pain is decreased and balance is better with cane. Reports manual is helping her feel better, but seeing minimal benefit from the exercises. Reported Pain Level Pain Score 7: Self Report Assessment PT Clinical Summary Lidia is a 76 year old female coming into the clinic for balance and low back pain. She was evaluated on May 15 and attended 5 sessions . During that time her hip extension improved to 4+/5, but minimal improvement in pain or hamstring length. She does report improved balance since working on exercises and most importantly does appear okay with using her cane to get around more . At this time, may be a prudent idea to have her continue working on her home exercise program, but have her see an orthopedic MD about injections in her greater trochanteric bursa to help with pain. Discharge from skilled physical therapy at this time. Plan of Care PT Services Indicated No Treatment Frequency and discharged from physical therapy Duration
== END 2022-06-12 15:47 | disposition home or self-care (01) ==
LOC: ANHPT 12:30
PROVIDERS: PCP Internal Medicine; Visit Provider Nurse Practitioner
DX: R26.89 Other abnormalities of gait and mobility (principal)
CPT/HCPCS: 97110; 97140; 97162

== ENCOUNTER 2022-08-18 11:34 | Outpatient (CLI) | payer MEDICARE, OTHER, SELFPAY ==
[2022-08-18 18:53] LABS: Alanine Aminotransferase 16 U/L (6-35); Albumin Level 3.7 g/dL (3.5-5.1); Alkaline Phosphatase 81 U/L (38-126); Anion Gap 2 mmol/L (8-16); Aspartate Amino Transferase 29 U/L (14-36); Blood Urea Nitrogen 20 mg/dL (7-17); Calcium 8.8 mg/dL (8.4-10.2); Carbon Dioxide 31 mmol/L (22-30); Chloride 103 mmol/L (98-107); Cholesterol 205 mg/dL (0-200); Estimated Glomerular Filt Rate > 60; Glucose 83 mg/dL (65-110); HDL Direct 82 mg/dL; Potassium 3.8 mmol/L (3.4-5.0); Sodium 136 mmol/L (137-145); Triglycerides 127 mg/dL (<150)
[2022-08-18 19:03] LABS: LDL Cholesterol Direct 91 mg/dL
[2022-08-18 19:17] LABS: Vitamin D 25 Hydroxy 45.7 ng/mL
[2022-08-21 18:58] LABS: PCP NEGATIVE ng/mL (<25)
[2022-08-22 15:53] LABS: Amphetamines Negative; Barbiturates Negative; Benzodiazepines Negative; Cocaine Metabolites Negative; Marijuana Metabolites Negative
== END 2022-08-18 11:35 | disposition home or self-care (01) ==
LOC: ANHGOSHLAB 11:35
PROVIDERS: PCP Internal Medicine; Visit Provider Nurse Practitioner
DX: E03.9 Hypothyroidism, unspecified (principal); E55.9 Vitamin D deficiency, unspecified; E66.9 Obesity, unspecified; M79.10 Myalgia, unspecified site; F11.90 Opioid use, unspecified, uncomplicated
CPT/HCPCS: 36415; 80053; 80061; 80307; 82306; 84443

== ENCOUNTER 2022-11-01 14:38 | Outpatient (CLI) | payer MEDICARE, OTHER, SELFPAY ==
--- NOTE | ~2022-11-01 | MM_ITS ---
EXAMINATION: MM screening [facility] BI w venita HISTORY: Screening mammogram TECHNIQUE: Craniocaudal and mediolateral oblique 3-D tomosynthesis images were obtained and synthetic 2-D images were generated. CAD analysis was submitted and interpreted. COMPARISON: 08/15/2021, 08/13/2020, 08/07/2019, 07/16/2019 BREAST PARENCHYMAL COMPOSITION: There are scattered areas of fibroglandular density. FINDINGS: No suspicious mass, calcification, or architectural distortion are identified in either jolie ast to suggest malignancy. There has been no suspicious interval change. IMPRESSION: 1. No mammographic evidence of malignancy. 2. Recommend routine screening mammography in one year. BI-RADS Category 1: Negative Reviewed, dictated and finalized at location A.
--- NOTE | ~2022-11-01 | DEXA_ITS ---
Bone Density Report Name: AMIRA DUMONT Age: 77 Sex: Female Ethnicity: White Date of : 1945 Indication: osteopenia; height loss; prior fracture; postmenopausal Referring Provider: KINJAL MASTERSON Study: Bone densitometry was performed. Exam Date: November 01, 2022 Accession number: [id number] Bone Density: Region BMD T-score Z-score Classification AP Spine(L1, L2, L3) 1.209 1.7 4.2 Normal Femoral Neck (Left) 0.601 -2.2 -0.1 Osteopenia Total Hip (Left) 0.759 -1.5 0.4 Osteopenia Femoral Neck (Right) 0.572 -2.5 -0.4 Osteoporosis Total Hip (Right) 0.751 -1.6 0.3 Osteopenia Total Hip Mean 0.755 -1.6 0.4 Osteopenia World Health Organization criteria for BMD impression classify patients as: Normal (T-score at or above -1.0), Osteopenia (T-score between -1.0 and -2.5), or Osteoporosis (T-score at or below -2.5). 10-year Fracture Risk: FRAX not reported because: Some T-score for Spine Total or Hip Total or Femoral Neck at or below -2.5 Previous Exams: Region Exam Age BMD T-score BMD Change BMD Change Date g/cm2 vs Baseline vs Previous AP Spine (L1-L3) 11/01/2022 77 1.209 1.7 0.159 (15.2%)* 0.077 (6.8%)* 09/09/2020 75 1.132 1.0 0.083 (7.9%)* 0.083 (7.9%)* 04/27/2016 70 1.049 0.3 Total Hip(Left) 11/01/2022 77 0.759 -1.5 -0.028 (-3.5%) -0.015 (-2.0%) 09/09/2020 75 0.774 -1.4 -0.013 (-1.6%) -0.013 (-1.6%) 04/27/2016 70 0.787 -1.3 Total Hip(Right) 11/01/2022 77 0.751 -1.6 -0.032 (-4.0%) -0.050 (-6.3%) 09/09/2020 75 0.801 -1.2 0.019 (2.4%) 0.019 (2.4%) 04/27/2016 70 0.782 -1.3 *Denotes significance at 95% confidence level, LSC for AP Spine = 0.022 g/cm2, LSC for Total Hip = 0.027 g/cm2 Clinical Information Provided by Patient: Has had a low trauma fracture Has used the following medications: Calcium Patient maximum height was 60.5 Menopause Age: 54 No regular weight bearing exercise Does not regularly consume dairy products Onset of menses at age 13 Number of children 1 Impression: The patient has established osteoporosis, based on the Right Femoral Neck T-score and the existence of a prior fracture. The patient has risk factors, including: previous fracture. The BMD for the Total Hip(Right) decreased, changing by -6.3% since the last DXA exam. Discussion: HIGH RISK OF FRACTURE. BONE DENSITY IS UNDESIRABLY LOW AT ONE OR MORE SKELETAL SITES, CONSISTENT WITH POSTMENOPAUSAL OSTEOPOROSIS.
== END 2022-11-01 14:39 | disposition home or self-care (01) ==
LOC: ANHIMG 14:40
PROVIDERS: PCP Internal Medicine; Visit Provider Nurse Practitioner
DX: Z12.31 Encounter for screening mammogram for malignant neoplasm of breast (principal); M81.0 Age-related osteoporosis without current pathological fracture; M85.852 Other specified disorders of bone density and structure, left thigh; M85.851 Other specified disorders of bone density and structure, right thigh
CPT/HCPCS: 77063; 77067; 77080

== ENCOUNTER 2023-06-28 11:00 | Outpatient (RCR) | payer MEDICARE, OTHER, SELFPAY ==
--- NOTE | 2023-05-23 14:51 | PTOPEVAL1 ---
Assessment and note entered by Cirilo Riley Evaluation Information Assessment Status Evaluation Diagnosis lumbar radiculpathy Onset 11/20/22 Subjective Information Pt. reports having back and right leg pain for the past 6 months. She reports that pain will radiate into the right thigh and occasionally into the right lower leg. She reports that she can develop the same pain into the left l.e., but pain is most noticable on the right. She reports that the pain is the worst at night. She states that pain can be increased with prolonged periods of sitting or standing. She states that she is currently using a cane due to her pain and feeling her that she is unsteady. She reports that she continues to do all her regular housework, however is slower and pain develops with these activities . She reports that her goal is to reduce her pain and improve her steadiness. Reported Pain Level Pain Score 5: Self Report Assessment PT Clinical Summary Pt. is a 77 year old female who enters the clinic with lumbar radiculopathy. She presents with bilateral l.e. weakness, impaired gait, impaired lumbar mobility, pain and functional decline. Continued skilled PT is indicated in order to improve these areas to allow the pt. to achieve her goal of improved comfort with IADL performance . Plan of Care Interventions Electrical Stimulation,Hot Pack/Cold Pack,Manual Therapy,Neuro Re-education,Patient/Caregiver Educati,Therapeutic Activities,Therapeutic Exercise PT Services Indicated Yes Treatment Frequency and 2x/week x 10 visits Duration These treatments will address the objective and functional deficits as defined above. The patient will be advanced safely and appropriately in order for the patient to progress towards his/her prior level of function. Additional exercises will be introduced and as well as a comprehensive home exercise program upon discharge, if needed, ?to ensure carryover of functional gains achieved in the clinic. This treatment plan has been reviewed and agreement upon by the patient.
--- NOTE | 2023-05-23 14:52 | OPREHPOC ---
Outpatient Therapy Plan of Care This is a Multidisciplinary Plan of Care that may contain components documented by all disciplines (PT, OT, and ST.) PT Problem 1 PT Problem #1 Knowledge Deficit PT Goal 1 Goal Pt. will be independent with a HEP addressing core strength and trunk mobility. Target Visit 2 PT Problem 2 PT Problem #2 Impaired Range of Motion PT Goal 1 Goal Pt. will demonstrate the ability to safely reach to the floor to lift small objects for 5-10 reps Target Visit 10 PT Problem 3 PT Problem #3 Impaired Balance PT Goal 1 Goal Pt. will improve her tinetti score to 19 or greater indicating improved safety PT Problem 4 PT Problem #4 Impaired Functional Mobil PT Goal 1 Goal Pt. will improve her Oswestry score to 40% or less indicating improve function and safety. Target Visit 10 PT Problem 5 PT Problem #5 Impaired Gait PT Goal 1 Goal Pt. will demonstrate ability to complete the 6 minute walk test with improved stride length demonstrating the ability for the swing phase extremity to pass the stance phase extremity with use of a standard cane over a distance of 600' or greater. Target Visit 10 PT Goal 2 Goal Pt. will report pain levels at 7/10 at worst with prolonged standing activities. Target Visit 10
--- NOTE | 2023-06-28 12:07 | PTOPDC ---
Assessment and note entered by Cirilo Riley Discharge Information Assessment Status Discharge Diagnosis lumbar radiculopathy Onset 11/20/22 Subjective Information Pt. reports she is doing much better. She reports that her right sided buttock pain is less intense . She reports pain is most notable in the evenings. She states that she is walking better and pleased with her progress. She reports she will continue with exercise at home and is ready for discharge. Reported Pain Level Pain Score 1: Self Report Assessment PT Clinical Summary Pt. demonstrates improvement in gait, strength and pain reports. She still presents with pain, but much less intense. Pt. has 10% improvement in her Oswestry. At this time recommend pt. continue with her HEP and she will be discharge from our care. Plan of Care PT Services Indicated Yes
== END 2023-06-28 12:49 | disposition home or self-care (01) ==
LOC: ANHPT 11:00
PROVIDERS: PCP Internal Medicine; Visit Provider Nurse Practitioner
DX: M54.16 Radiculopathy, lumbar region (principal)
CPT/HCPCS: 97014; 97110; 97140; 97161; 97530; G0283

== ENCOUNTER 2023-11-15 12:33 | Outpatient (CLI) | payer MEDICARE, OTHER, SELFPAY ==
[2023-11-15 13:47] LABS: Cholesterol 200 mg/dL (0-200); HDL Direct 79 mg/dL; Triglycerides 124 mg/dL (<150)
[2023-11-15 13:58] LABS: LDL Cholesterol Direct 100 mg/dL
[2023-11-15 14:04] LABS: Vitamin D 25 Hydroxy 51.5 ng/mL
[2023-11-17 10:53] LABS: Amphetamines NEGATIVE ng/mL (<500); Barbiturates NEGATIVE ng/mL (<300); Benzodiazepines NEGATIVE ng/mL (<100); Cocaine Metabolite NEGATIVE ng/mL (<150); Marijuana Metabolite NEGATIVE ng/mL (<20); Methadone Metabolite NEGATIVE ng/mL (<100); Opiates NEGATIVE ng/mL (<100); Oxidant NEGATIVE mcg/mL (<200); pH 8.3 (4.5-9.0)
== END 2023-11-15 12:34 | disposition home or self-care (01) ==
LOC: ANHLAB 12:36
PROVIDERS: PCP Internal Medicine; Visit Provider Nurse Practitioner
DX: E03.9 Hypothyroidism, unspecified (principal); E66.9 Obesity, unspecified; R11.0 Nausea; R53.83 Other fatigue; F11.90 Opioid use, unspecified, uncomplicated; M79.10 Myalgia, unspecified site; K21.9 Gastro-esophageal reflux disease without esophagitis; E55.9 Vitamin D deficiency, unspecified
CPT/HCPCS: 36415; 80061; 80307; 82306; 84443

== ENCOUNTER 2023-12-06 07:24 | Outpatient (CLI) | payer MEDICARE, OTHER, SELFPAY ==
--- NOTE | ~2023-12-06 | NM_ITS ---
EXAM: NM gastric emptying study DATE: 12/06/2023 12:18 CDT INDICATION: Nausea TECHNIQUE: A gastric emptying study was performed using the methodology of Bunny RAMIREZ, et al. J Nucl Med 2007; 48:568-572. The patient was given a meal consisting of 2 scrambled eggs labeled with mCi T c-99m sulfur colloid, 2 slices of toast, two packages of jam, and approximately 120 mL of water. Simu ltaneous anterior and posterior 1-min images of the abdomen were obtained with the patient supine at multiple time points over a total period of 4 hours. The geometric mean of anterior and posterior vie ws was determined, and the percentage retention was calculated for each time point. COMPARISON: None. FINDINGS: Gastric retention of the radiotracer-labeled meal was 70%, 53%, and 20% at the 1-hour, 2-h our, and 4-hour time points, respectively. With this technique, apparent rapid gastric emptying is beebe ggested by <30% gastric retention at 1 hour. Delayed gastric emptying is defined by gastric retention of >90% at 1 hour, >60% retention at 2 hours, or >10% retention at 4 hours. IMPRESSION: 1. Delayed gastric emptying. Reviewed, dictated and finalized at location B.
== END 2023-12-06 07:25 | disposition home or self-care (01) ==
PROVIDERS: PCP Internal Medicine; Visit Provider Nurse Practitioner Family
DX: K30 Functional dyspepsia (principal)
CPT/HCPCS: 78264; A9541

== ENCOUNTER 2023-12-15 09:20 | Outpatient (CLI) | payer MEDICARE, OTHER, SELFPAY ==
--- NOTE | ~2023-12-15 | XR_ITS ---
XR UGI w barium swallow DATE: 12/15/2023 10:11 INDICATION: Nausea. History of gastric bypass surgery 9 years ago TECHNIQUE: Single contrast barium swallow and upper gastrointestinal series COMPARISON: None FINDINGS: There are tertiary contractions of esophagus consistent with presbyesophagus. No persistent stricture or intraluminal mass lesion, diverticula, or ulceration of the esophagus is evident. The gastric remnant is unremarkable. No stricture, intraluminal mass lesion or obstruction is evident . Proximal small bowel mucosal pattern appears normal. IMPRESSION: Presbyesophagus Status post gastric bypass surgery; no obstruction Reviewed, dictated and finalized at Location A. Reviewed, dictated and finalized at location A.
== END 2023-12-15 09:21 | disposition home or self-care (01) ==
PROVIDERS: PCP Internal Medicine; Visit Provider Nurse Practitioner Family
DX: R11.0 Nausea (principal); K22.89 Other specified disease of esophagus
CPT/HCPCS: 74240

== ENCOUNTER 2023-12-19 12:40 | Outpatient (CLI) | payer MEDICARE, OTHER, SELFPAY ==
[2023-12-19 13:30] LABS: Basophils Absolute Auto 0.1 K/mm3 (0.0-0.1); Basophils Percent Auto 1.4 % (0.2-1.2); Eosinophils Absolute Auto 0.1 K/mm3 (0-0.3); Eosinophils Percent Auto 1.9 % (0-4.4); Hematocrit 38.9 % (37.0-47.0); Hemoglobin 12.7 g/dL (12.0-15.0); Immature Granulocyte Absolute 0.01 K/mm3 (0.00-0.031); Immature Granulocyte Percent A 0.3 % (0-0.5); Lymphocytes Absolute Auto 0.71 K/mm3 (0.9-3.2); Lymphocytes Percent Auto 19.7 % (18.3-44.2); Mean Corpuscular HGB Conc 32.6 g/dl (32-36); Mean Corpuscular Hemoglobin 31.6 pg (26-34); Mean Corpuscular Volume 96.8 fl (80-100); Mean Platelet Volume 10.5 fl (7.4-10.4); Monocytes Absolute Auto 0.3 K/mm3 (0.1-0.6); Monocytes Percent Auto 9.1 % (2.6-8.5); Neutrophils Absolute Auto 2.4 K/mm3 (1.3-6.7); Neutrophils Percent Auto 67.6 % (45.5-73.1); Platelet Count Result 249 k/mm3 (150-375); Red Blood Count 4.02 M/mm3 (4.2-5.4); Red Cell Distribution Width 14.7 % (11.5-14.5); White Blood Count 3.6 K/mm3 (4.5-10.0)
[2023-12-19 15:10] LABS: Anion Gap 4 mmol/L (4-12); Blood Urea Nitrogen 21 mg/dL (7-17); Calcium 8.9 mg/dL (8.4-10.2); Carbon Dioxide 28 mmol/L (22-30); Chloride 108 mmol/L (98-107); Estimated Glomerular Filt Rate > 60; Glucose 90 mg/dL (65-110); Potassium 4.1 mmol/L (3.4-5.0); Sodium 140 mmol/L (137-145)
== END 2023-12-19 12:41 | disposition home or self-care (01) ==
LOC: ANHLAB 12:43
PROVIDERS: Internal Medicine Cardiovascular Disease; PCP Internal Medicine; Visit Provider Internal Medicine Hematology & Oncology
DX: I35.0 Nonrheumatic aortic (valve) stenosis (principal)
CPT/HCPCS: 36415; 80048; 85025

== ENCOUNTER 2024-01-02 12:37 | Inpatient (IN) | payer MEDICARE, OTHER, SELFPAY ==
[2024-01-02] VITALS (15 sets, daily range): BP systolic 116–134; BP diastolic 42–91; PULSE 70–94; RESP 5–20; TEMP 36.3–36.5; O2SAT 94–100
--- NOTE | ~2024-01-02 | XR_ITS ---
XR chest 1V portable Ordering provider: Elizabeth Headley, ELIGIO History: 78 years Female with . shortnes of breath . Comparison: October 27, 19982017 FINDINGS: MEDIASTINUM: The cardiac silhouette is not enlarged. LUNGS: No infiltrates, effusions or pneumothorax. Small nodule in the right lower lobe unchanged from previous examination. Slightly prominent markings bilaterally. OTHER: No free air under the diaphragm. Degenerative changes of the spine. IMPRESSION: No acute cardiopulmonary pathology. Reviewed, dictated and finalized at location A.
--- NOTE | ~2024-01-02 | CT_ITS ---
CTA brain carotid Ordering provider: Elizabeth Headley APRN History: . stroke . Comparison: None. Technique: CT angiogram head was performed following timed intravenous injection of contrast. Thin sl ice axial images and reformatted coronal images were obtained. Three dimensional reformatted images o f the brain were also obtained using a [employer] workstation. Radiation reduction technique utilized. D LP is 1621 mGy-cm. 100 mL Omnipaque 350 was given IV. FINDINGS: --ANTERIOR AND MIDDLE CEREBRAL ARTERIES AND BRANCHES: Normal caliber and contour. --INTERNAL CAROTID ARTERIES: Mild atheromatous disease but no significant stenosis. No occlusion. --BASILAR ARTERY AND BRANCHES: Normal caliber and contour. No atheromatous disease. --POSTERIOR CEREBRAL ARTERIES: Normal caliber and contour --POSTERIOR COMMUNICATING ARTERIES: The right is Not visualized which is probably related to congenit al absence or small size. The left is seen. --ANEURYSM: None visualized. --BRAIN: Mild brain atrophy with deep white matter ischemic changes. --BONES AND SUPERFICIAL SOFT TISSUES: Please refer to report of CT head performed the same day. --PARANASAL SINUSES AND MASTOIDS: Please refer to report of CT head done the same day. IMPRESSION: No significant stenosis or occlusion seen. CTA brain carotid Ordering provider: Elizabeth Headley APRN History: . stroke . Comparison: None. Technique: CT angiogram neck was performed following timed intravenous injection of contrast. Thin sl ice axial images and reformatted coronal images were obtained. Three dimensional reformatted images o f the neck were also obtained using a [employer] workstation. Automated exposure control and iterative re construction technique were employed. The dose-length product was 1621.00 mGy-cm. FINDINGS: RIGHT CERVICAL CAROTID ARTERY: Mild atheromatous disease of the carotid bulb and proximal internal ca rotid artery without significant stenosis. Percent stenosis per NASCET criteria is 0%. No carotid di ssection. Otherwise, no significant atheromatous disease or stenosis of the cervical carotid system. LEFT CERVICAL CAROTID ARTERY: Mild atheromatous disease of the carotid bulb and proximal internal car otid artery without significant stenosis. Percent stenosis per NASCET criteria is 0%. No carotid dis section. Otherwise, no significant atheromatous disease or stenosis of the cervical carotid system. VISUALIZED BILATERAL INTRACRANIAL CAROTID ARTERIES: VERTEBRAL BASILAR SYSTEM: Normal caliber and contour VISUALIZED AORTIC ARCH AND BRANCHING VESSELS: Mild atheromatous disease but no significant stenosis. SOFT TISSUES: Normal. CERVICAL SPINE: Age appropriate degenerative changes. IMPRESSION: Normal CTA head and neck. Percent stenosis per NASCET criteria is 0%. Reviewed, dictated and finalized at location A. IMPRESSION: No significant stenosis or occlusion seen. CTA brain carotid Ordering provider: Elizabeth Headley APRN History: . stroke . Comparison: None. Technique: CT angiogram neck was performed following timed intravenous injectio n of contrast. Thin slice axial images and reformatted coronal images were obta ined. Three dimensional reformatted images of the neck were also obtained using a [employer] workstation. Automated exposure control and iterative reconstruction technique were employed. The dose-length product was 1621.00 mGy-cm. FINDINGS: RIGHT CERVICAL CAROTID ARTERY: Mild atheromatous disease of the carotid bulb an d proximal internal carotid artery without significant s
--- NOTE | ~2024-01-02 | MR_ITS ---
EXAMINATION: MR brain/brain stem wo/w con DATE: 01/03/2024 13:02 INDICATION: Right facial numbness TECHNIQUE: Magnetic resonance imaging (MRI) of the brain and brainstem was performed without and with 12 mL Multihance intravenous contrast. Sequences included sagittal and axial T1-weighted SE, axial d iffusion-weighted FS SE, axial 3D SWAN, axial T2-weighted FLAIR, and axial T2-weighted FSE. Postcontr ast axial and coronal T1-weighted SE was obtained. Apparent diffusion coefficient (ADC) maps were cre ated. COMPARISON: Head CT and CT angiogram dated 01/02/2024 FINDINGS: There are no areas of restricted diffusion to suggest acute infarction. No intracranial hemorrhage or abnormal intracranial mass lesion. Single tiny focus of nonspecific subcortical white matter T2 hype rintensity at the posterior right frontal lobe which is within normal limits for age. There are no in traparenchymal signal abnormalities seen on the other pulse sequences. The ventricles are symmetric a nd normal in size. There are no abnormal extra-axial fluid collections. Flow voids are seen in the ce rebral arteries on the T2-weighted sequences consistent with their expected patency. Mild mucosal thi ckening the bilateral ethmoid sinuses. Changes of bilateral intraocular lens replacement. Asymmetric mild stranding in the subcutaneous fat along the anterior right mandible. There are no areas of abno rmal enhancement on the post contrast images. IMPRESSION: 1. Normal for age brain with single tiny focus of nonspecific subcortical white matter T2 hyperintens ity in the posterior right frontal lobe. No acute intracranial process. Reviewed, dictated and finalized at location A. IMPRESSION: 1. Normal for age brain with single tiny focus of nonspecific subcortical white matter T2 hyperintensity in the posterior right frontal lobe. No acute intracr anial process.
--- NOTE | 2024-01-02 14:10 | ECG_ITS ---
Test Date: 2024-01-02 16:16:03 Measurements Intervals [place] Rate: 71 P: 24 MD: 173 QRS: 1 QRSD: 92 T: 24 QT: 408 QTc: 444 Interpretive Statements SINUS RHYTHM NORMAL ECG No previous ECG available for comparison Electronically Signed On 01-02-2024 20:26:11 CDT by Vamshi Carcamo D.O.
--- NOTE | 2024-01-02 14:19 | ED.GENADULT ---
HPI - General Adult General Chief complaint: Unspecified Stated complaint: facial swelling, numbness and arm pain Time Seen by Provider: 01/02/24 13:19 History of Present Illness HPI narrative: Lidia Ozuna is a 78 y/o female who presents today with reports of having onset of right lower lip numbness that moved across to her right cheek area and then started to have swelling to her right cheek. She was worried she was having a stroke and came in. She states the numbness has improved some but still feels slight numb to her lip She adds that she has had pain from both shoulders down to both elbows the past couple weeks that she states she deals with off and on for a long time and relates this to her previous rotator cuff injury pain Denies Chest pain/ SOB/ abdominal pain/ vision changes/ dizziness/ nausea/ vomiting / Related Data Home Medications Medication Instructions Recorded Confirmed biotin 5,000 mcg disintegrating 5,000 mcg PO DAILY 05/01/19 01/02/24 tablet calcium carbonate 600 mg PO TID 05/01/19 01/02/24 mecobalamin (vitamin B12) 1,000 500 mcg sublingual DAILY 09/06/21 01/02/24 mcg disintegrating tablet,sublingual acyclovir 400 mg tablet 400 mg PO BID 01/02/24 01/02/24 furosemide 20 mg tablet 20 mg PO DAILY 01/02/24 01/02/24 lactobacillus combination no.8 3 See Rx Instructions .Route .COMPLEX 01/02/24 01/02/24 billion cell capsule multivit with minerals-iron 18 1 tablet PO DAILY 01/02/24 01/02/24 mg-folic ac 400 mcg-vit K 25 mcg tablet (Adults Multivitamin) Allergies Allergy/AdvReac Type Severity Reaction Status Date / Time codeine Allergy Unknown Vomiting Verified 01/02/24 18:42 nitrofurantoin Allergy Sweating Verified 01/02/24 18:42 and Hives Review of Systems Review of Systems: CONSTITUTIONAL: Denies fever, chills, or sweats. EYES: Denies visual changes, redness, or discharge. ENT: Denies rhinorrhea, congestion, sore throat, + numbness to right lower lip that moves across to her right cheek CARDIOVASCULAR: Denies chest pain, palpitations, or edema. RESPIRATORY: Denies cough or dyspnea. GASTROINTESTINAL: Denies abdominal pain, nausea, vomiting, or diarrhea. GENITOURINARY: Denies dysuria or hematuria. SKIN: Denies rash or itching. MUSCULOSKELETAL: Reports pain to her upper arms bilaterally shoulders to elbows NEUROLOGIC: Denies headache, dizziness, or weakness. + numbness to her right lip to her right cheek PSYCHIATRIC: Denies anxiety or depression. [facility] Past Medical History Medical History (Updated 01/02/24 @ 19:30 by Elizabeth Headley APRN) Blood clot in vein Bunion, right foot Removed 2013 Cataract 2010 Xklmcfd-Hiwee-Mcxuo disease Cholecystectomy planned 2007 Chronic back pain Chronic ear pain Colitis Connective tissue disease Cyst of breast Left lumpectomy 2004, right lumpectomy 2004 GERD (gastroesophageal reflux disease) H/O one miscarriage History of fracture History of measles, mumps, or rubella Hyperlipidemia Hypertension Hypokalemia Hypothyroidism MRSA (methicillin resistant Staphylococcus aureus) 2013 Osteoarthritis Osteopenia Personal history of DVT (deep vein thrombosis) Personal history of other drug therapy Recurrent UTI Skin disorder SLE (systemic lupus erythematosus) Surgical History Surgical History H/O Achilles tendon repair Left foot 2010 H/O section 1969 H/O gastric bypass 2015 H/O rotator cuff surgery Right 2008 H/O tubal ligation BL 1980 History of bilateral knee arthroplasty 2005 History of bladder surgery Bladder reconstruction 1968 Previous back surgery 2009 Family History Family History Father Heart disease Mother Liver disease Social History Social History Social History: Caffeine-occasional soda Smoking status: Never smoker Second hand
[2024-01-02 14:57] LABS: Basophils Percent Auto 0.8 % (0.2-1.2); Eosinophils Percent Auto 0.6 % (0-4.4); Hematocrit 36.5 % (37.0-47.0); Hemoglobin 12.1 g/dL (12.0-15.0); Immature Granulocyte Absolute 0.01 K/mm3 (0.00-0.031); Immature Granulocyte Percent A 0.2 % (0-0.5); Lymphocytes Absolute Auto 0.89 K/mm3 (0.9-3.2); Lymphocytes Percent Auto 17.8 % (18.3-44.2); Mean Corpuscular HGB Conc 33.2 g/dl (32-36); Mean Corpuscular Hemoglobin 32.4 pg (26-34); Mean Corpuscular Volume 97.9 fl (80-100); Mean Platelet Volume 10.7 fl (7.4-10.4); Monocytes Absolute Auto 0.3 K/mm3 (0.1-0.6); Monocytes Percent Auto 5.8 % (2.6-8.5); Neutrophils Absolute Auto 3.7 K/mm3 (1.3-6.7); Neutrophils Percent Auto 74.8 % (45.5-73.1); Platelet Count Result 210 k/mm3 (150-375); Red Blood Count 3.73 M/mm3 (4.2-5.4); Red Cell Distribution Width 15.3 % (11.5-14.5)
[2024-01-02 15:06] LABS: Appearance Urine Clear (Clear); Bilirubin Urine Negative (Negative); Blood Urine Negative (Negative); Color Urine Yellow (Yellow); Glucose Urine UA Negative (Negative); Ketones Urine Negative (Negative); Leukocyte Esterase Ur Negative LEU/UL (Negative); Nitrate Urine Negative (Negative); Protein Urine Negative (Negative); Specific Grav Ur 1.007 (1.001-1.035); Urobilinogen Urine 0.2 mg/dL (<2.0); pH Urine 5.5 (5.0-9.0)
[2024-01-02 15:07] LABS: INR 1.1; Prothrombin Time 14.4 Seconds (11.1-14.7)
[2024-01-02 15:08] LABS: Partial Thromboplastin Time 28.9 Seconds (22.3-36.8)
[2024-01-02 15:09] LABS: Alanine Aminotransferase 14 U/L (6-35); Albumin Level 3.7 g/dL (3.5-5.1); Alkaline Phosphatase 78 U/L (38-126); Amylase 78 U/L (30-110); Anion Gap 7 mmol/L (4-12); Aspartate Amino Transferase 27 U/L (14-36); Bilirubin,Total 0.9 mg/dL (0.2-1.3); Blood Urea Nitrogen 27 mg/dL (7-17); Calcium 9.4 mg/dL (8.4-10.2); Carbon Dioxide 29 mmol/L (22-30); Chloride 103 mmol/L (98-107); Estimated Glomerular Filt Rate > 60; Glucose 92 mg/dL (65-110); Potassium 3.9 mmol/L (3.4-5.0); Sodium 139 mmol/L (137-145)
--- NOTE | 2024-01-02 15:10 | PC.NURSE ---
pt to CT at this time
[2024-01-02 15:20] LABS: Troponin I < 0.012 ng/mL (0.000-0.034)
[2024-01-02 15:23] LABS: Add Urine Microscopic? NO
[2024-01-02 16:10] LABS: Estimated Glomerular Filt Rate > 60
--- NOTE | 2024-01-02 17:34 | ECG_ITS ---
Test Date: 2024-01-02 17:34:11 Measurements Intervals [place] Rate: 73 P: 26 [place]: 162 QRS: 4 QRSD: 94 T: 31 QT: 393 QTc: 435 Interpretive Statements SINUS RHYTHM BASELINE WANDER- II, III NORMAL ECG Compared to ECG 01/02/2024 16:16:03 No significant changes Electronically Signed On 01-03-2024 14:15:31 CDT by Vamshi Carcamo D.O.
--- NOTE | 2024-01-02 17:58 | PM.IMHP ---
H&P: HPI History of Present Illness Date/Time: 01/02/24 17:58 Chief Complaint: Facial Swelling, Facial Numbness Narrative: 78-year-old female presents here with right-sided facial swelling and right-sided facial numbness with PMH of SLE, aortic stenosis, cjgejwb-tlfqy-iwewm disease, DVT, hypothyroidism, HTN, HLD, colitis, and GERD. The patient presents here from home for further evaluation of right-sided facial swelling and right-sided facial numbness that started around 12:30 pm today. First started with numbness to left mid lip to corner of lip, no extension to jaw or chin. When she evaluated the area in the mirror and noted very mild swelling, when she reassessed the area 5-10 mins later it was more swollen. Denying accompanying chills, fever, facial tenderness, dental pain, rash, focal weakness or numbness, itching, dysarthria, or dysphagia. No previous history of shingles. Does not take an ASIM inhibitor and no food allergies. Has also been having bilateral upper extremity weakness without numbness. Patient reports the weakness if secondary to pain. Has been worse over the past week, has a hx of rotator cuff issues in the right shoulder, and not associated with any recent heavy lifting/trauma/pulling. Of note, patient had cardiac cath on 12/24 as part of a medical workup in anticipation of a valve replacement. Patient is already on acyclovir 400 mg b.i.d. 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 Initial VS at presentation: 97.7? F, HR 75, RR 20, 129/67, and 100% on RA. ED workup showed: No leukocytosis, no anemia, normal coags, no significant electrolyte derangements, creatinine 0.9 and GFR >60, initial troponin negative, and UA unremarkable. CXR showed no acute cardiopulmonary pathology. CTA of the head/neck showed normal CTA head and neck. Percent stenosis per NASCET criteria is 0%. Review of Systems Review of Systems: All systems reviewed & are unremarkable except as noted in HPI and below [facility] Past Medical History Medical History Aortic stenosis Blood clot in vein Bunion, right foot Removed 2013 Cataract 2010 Cewtyqt-Kiinx-Mlzkg disease Chronic back pain Colitis Cyst of breast Left lumpectomy 2003, right lumpectomy 2004 GERD (gastroesophageal reflux disease) H/O one miscarriage History of measles, mumps, or rubella Hyperlipidemia Hypertension Hypokalemia Hypothyroidism MRSA (methicillin resistant Staphylococcus aureus) 2013 Osteoarthritis Osteopenia Personal history of DVT (deep vein thrombosis) Recurrent UTI SLE (systemic lupus erythematosus) Surgical History Surgical History H/O Achilles tendon repair Left foot 2010 H/O section 1969 H/O gastric bypass 2015 H/O rotator cuff surgery Right 2008 H/O tubal ligation BL 1980 History of bilateral knee arthroplasty 2005 History of bladder surgery Bladder reconstruction 1968 Previous back surgery 2009 Family History Family History Father Heart disease Mother Liver disease Social History Social History Social History: Caffeine-occasional soda Smoking status: Never smoker Second hand tobacco smoke exposure: No Alcohol intake: never Substance use: never Substance use type: does not use Do You Feel Safe in your Home?: Yes Lack of Transportation: No Lack of Food: Never True Current Housing: I Have Housing Concerned About Future Housing: No Difficulty Paying Gas/Electric Bills: No Difficulty Paying for Meds: No Currently Unemployed: No Education: High School Diploma/GED Difficulty w/ Childcare or Family Care: No Gender identity (if verbalized by the patient): Female Sexual Orientation (if Verbaliz
[2024-01-02 18:06] LABS: Troponin I < 0.012 ng/mL (0.000-0.034)
--- NOTE | 2024-01-02 18:41 | ADMGEN ---
This patient, Lidia Ozuna, was admitted to 2 Medical Room 251-01. Patient/family oriented to hospital policies and general routines including ID bracelet, bed and alarms, visiting hours, pain management, procedures, bathroom and other care routines, personal items, smoking policy, room service/diet, and visiting hours. Information on how to activate the Rapid Response Team has been discussed. Patient/Family are encouraged to report perceived risks to care and to ask questions if they do not understand what they are told or what they should do.
[2024-01-02] MEDS: ACYCLOVIR 400 MG TABLET PO (20:26)
[2024-01-02] MEDS: traMADol HCL (*CRX) 50 MG TABLET PO (20:26)
[2024-01-02] MEDS: APIXABAN 2.5 MG TABLET PO (20:27)
[2024-01-02] MEDS: FAMOTIDINE 10 MG TABLET PO (21:17)
[2024-01-03] VITALS (10 sets, daily range): BP systolic 118–123; BP diastolic 50–59; PULSE 72–84; RESP 17–20; TEMP 36.4–36.8; O2SAT 99
[2024-01-03] MEDS: traMADol HCL (*CRX) 50 MG TABLET PO ×4 (02:28→21:50)
[2024-01-03 05:23] LABS: Basophils Percent Auto 0.8 % (0.2-1.2); Eosinophils Absolute Auto 0.1 K/mm3 (0-0.3); Eosinophils Percent Auto 1.8 % (0-4.4); Hematocrit 36.8 % (37.0-47.0); Hemoglobin 12.2 g/dL (12.0-15.0); Immature Granulocyte Absolute 0.01 K/mm3 (0.00-0.031); Immature Granulocyte Percent A 0.3 % (0-0.5); Lymphocytes Absolute Auto 1.42 K/mm3 (0.9-3.2); Lymphocytes Percent Auto 37.2 % (18.3-44.2); Mean Corpuscular HGB Conc 33.2 g/dl (32-36); Mean Corpuscular Hemoglobin 32.4 pg (26-34); Mean Corpuscular Volume 97.6 fl (80-100); Mean Platelet Volume 10.3 fl (7.4-10.4); Monocytes Absolute Auto 0.4 K/mm3 (0.1-0.6); Monocytes Percent Auto 9.9 % (2.6-8.5); Neutrophils Absolute Auto 1.9 K/mm3 (1.3-6.7); Platelet Count Result 232 k/mm3 (150-375); Red Blood Count 3.77 M/mm3 (4.2-5.4); Red Cell Distribution Width 15.4 % (11.5-14.5); White Blood Count 3.8 K/mm3 (4.5-10.0)
[2024-01-03 05:42] LABS: Alanine Aminotransferase 15 U/L (6-35); Alkaline Phosphatase 84 U/L (38-126); Anion Gap 6 mmol/L (4-12); Aspartate Amino Transferase 29 U/L (14-36); Bilirubin,Total 1.5 mg/dL (0.2-1.3); Blood Urea Nitrogen 25 mg/dL (7-17); CRP < 0.5 mg/dL (<1.0); Calcium 9.3 mg/dL (8.4-10.2); Carbon Dioxide 32 mmol/L (22-30); Chloride 101 mmol/L (98-107); Estimated Glomerular Filt Rate > 60; Glucose 95 mg/dL (65-110); Potassium 3.9 mmol/L (3.4-5.0); Sodium 139 mmol/L (137-145)
[2024-01-03] MEDS: LEVOTHYROXINE SODIUM 75 MCG TABLET PO (06:53)
[2024-01-03] MEDS: MULTIVITAMINS /C LUTEIN (CENTRUM SILVER) TABLET *BKC 1 TAB PO (08:32)
[2024-01-03] MEDS: CYANOCOBALAMIN 500 MCG TABLET PO (08:32)
[2024-01-03] MEDS: CALCIUM CARBONATE (OSCAL) 500 MG TABLET PO ×3 (08:32→17:02)
[2024-01-03] MEDS: FUROSEMIDE 20 MG TABLET PO (08:32)
[2024-01-03] MEDS: APIXABAN 2.5 MG TABLET PO ×2 (08:32→21:51)
[2024-01-03] MEDS: ACYCLOVIR 400 MG TABLET PO ×2 (08:33→21:51)
--- NOTE | 2024-01-03 09:04 | WPDNEURCNPN ---
Assessment and Plan Assessment and plan (1) Numbness: Code(s): R20.0 - Anesthesia of skin Status: Acute (2) Cheek swelling: Code(s): R22.0 - Localized swelling, mass and lump, head Status: Acute Plan Lidia Ozuna is a 78 year old female with a history of lupus, vitamin D deficiency, TMJ, HTN, hypothyroidism, DVT on chronic anticoagulation presenting for evaluation of numbness in the R lower face. Unable to get MRI brain due to her spinal stimulator. She has some swelling in the R mandibular region which may be suggestive of underlying infection, which could have caused transient irritation of R V3 segment. She has been started on antibiotics in hopes of improving the swelling. CT head can be obtained tomorrow to evaluate for any subacute changes that may be suggestive of stroke, but my suspicion for this is lower. Will check CK and aldolase given she is complaining of proximal upper extremity weakness/pain. Consult date: 01/03/24 Reason for consult: R perioral numbness HPI: Lidia Ozuna is a 78 year old female with a history of lupus, vitamin D deficiency, TMJ, HTN, hypothyroidism, DVT on chronic anticoagulation presenting for evaluation of numbness in the R lower face. She started to develop R sided lower facial numbness around 1230 PM on 01/01. She numbness first started in the middle of the bottom lip to the corner of the lip on the R side. She noted swelling in the R cheek area. She is on acyclovir already. She presented to the ER where her symptoms appeared to be resolving. Her CTA brain/carotid did not show any acute changes on the CT and vessel imaging was normal. She had a recent cardiac cath done on 12/29. She sensory changes around her lip have resolved. Patient has been started on Unasyn but hospitalist due to concerns for possibly infectious etiology of cheek swelling. Patient has spinal stimulator so cannot have MRI done. She is reporting pain and weakness in the proximal upper extremities for the past few days as well. Review of Systems Review of Systems: All systems reviewed & are unremarkable except as noted in HPI and below PMF[facility] Past Medical History Medical History Aortic stenosis Blood clot in vein Bunion, right foot Removed 2013 Cataract 2010 Bmxaxyu-Inzwv-Nbcin disease Chronic back pain Colitis Cyst of breast Left lumpectomy 2003, right lumpectomy 2004 GERD (gastroesophageal reflux disease) H/O one miscarriage History of measles, mumps, or rubella Hyperlipidemia Hypertension Hypokalemia Hypothyroidism MRSA (methicillin resistant Staphylococcus aureus) 2013 Osteoarthritis Osteopenia Personal history of DVT (deep vein thrombosis) Recurrent UTI SLE (systemic lupus erythematosus) Surgical History Surgical History H/O Achilles tendon repair Left foot 2010 H/O section 1969 H/O gastric bypass 2015 H/O rotator cuff surgery Right 2008 H/O tubal ligation BL 1980 History of bilateral knee arthroplasty 2005 History of bladder surgery Bladder reconstruction 1968 Previous back surgery 2009 Family History Family History Father Heart disease Mother Liver disease Social History Social History Social History: Caffeine-occasional soda Smoking status: Never smoker Second hand tobacco smoke exposure: No Alcohol intake: never Substance use: never Substance use type: does not use Do You Feel Safe in your Home?: Yes Lack of Transportation: No Lack of Food: Never True Current Housing: I Have Housing Concerned About Future Housing: No Difficulty Paying Gas/Electric Bills: No Difficulty Paying for Meds: No Currently Unemployed: No Education: High School Diploma/GED Difficulty w/ Childcare or Family Care: No Gender
[2024-01-03] MEDS: AMPICILLIN SULB 3 GM/NS 100 ML 3 GM/100 ML VIAL IVPB ×2 (10:21→17:50)
--- NOTE | 2024-01-03 10:36 | PM.IMPN ---
Progress Note: A&P Assessment and Plan (1) Cellulitis of right external cheek: Code(s): L03.211 - Cellulitis of face Status: Acute Assessment and Plan: New deficits of facial numbness starting on 01/01 at 12:30 p.m. No CVA seen on CTA of head and neck. - presented to the ED with complaints of right-sided cheek swelling and numbness - numbness is better swelling is still present - CXR: No acute cardiopulmonary pathology. - CTA: Normal CTA head and neck. Percent stenosis per NASCET criteria is 0%. - CTA confirmed cellulitis of the right cheek per radiology - neurology consulted - brain MRI w/wo ordered per Neurology request, however unable to be done due to patient's back hardware - neuro checks Q6H - start IV Unasyn - Contiue to monitor cheek swelling - Most likely can DC on oral antibiotics in the am (2) Hypertension: Qualifiers: Hypertension type: essential hypertension Qualified Code(s): I10 - Essential (primary) hypertension Code(s): I10 - Essential (primary) hypertension Status: Acute Assessment and Plan: Current BP 123/59 No current home medications Trend BP Adjust therapy as indicated (3) Hypothyroidism: Qualifiers: Hypothyroidism type: acquired Qualified Code(s): E03.9 - Hypothyroidism, unspecified Code(s): E03.9 - Hypothyroidism, unspecified Status: Acute Assessment and Plan: Continue levothyroxine 75 mcg daily (4) History of DVT (deep vein thrombosis): Code(s): Z86.718 - Personal history of other venous thrombosis and embolism Status: Acute Assessment and Plan: Continue home eliquis (5) HPV in female: Code(s): B97.7 - Papillomavirus as the cause of diseases classified elsewhere Status: Acute Assessment and Plan: Has a history of HPV of the coccyx Continue home acyclovir No indication of break out Plan Diet: Heart healthy GI Prophylaxis: Not currently indicated DVT Prophylaxis: SCDs Lines: Peripheral Code Status: Full code Time Spent With Patient Time: 53 minutes Time with patient: Greater than 35 minutes Subjective Date/time seen: 01/03/24 10:36 Interval history: 01/02/24 17:58 78-year-old female presents here with right-sided facial swelling and right-sided facial numbness with PMH of SLE, aortic stenosis, vrcipqv-zkkgx-dpywb disease, DVT, hypothyroidism, HTN, HLD, colitis, and GERD. The patient presents here from home for further evaluation of right-sided facial swelling and right-sided facial numbness that started around 12:30 pm today. First started with numbness to left mid lip to corner of lip, no extension to jaw or chin. When she evaluated the area in the mirror and noted very mild swelling, when she reassessed the area 5-10 mins later it was more swollen. Denying accompanying chills, fever, facial tenderness, dental pain, rash, focal weakness or numbness, itching, dysarthria, or dysphagia. No previous history of shingles. Does not take an ASIM inhibitor and no food allergies. Has also been having bilateral upper extremity weakness without numbness. Patient reports the weakness if secondary to pain. Has been worse over the past week, has a hx of rotator cuff issues in the right shoulder, and not associated with any recent heavy lifting/trauma/pulling. Of note, patient had cardiac cath on 12/24 as part of a medical workup in anticipation of a valve replacement. Patient is already on acyclovir 400 mg b.i.d. 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 Initial VS at presentation: 97.7? F, HR 75, RR 20, 129/67, and 100% on RA. ED workup showed: No leukocytosis, no anemia, normal coags, no significant electrolyte derangements, creatinine 0.9 and GFR >60, initial troponin negative, and UA unremarkable. CXR showed no acute cardiopulmonary pathology. CTA of the
[2024-01-03] MEDS: diphenhydrAMINE HCl CAP 25 MG CAPSULE PO ×3 (10:59→23:59)
[2024-01-03 11:03] LABS: Creatine Kinase 33 U/L (30-135)
[2024-01-04] VITALS: PULSE 69
[2024-01-04] MEDS: AMPICILLIN SULB 3 GM/NS 100 ML 3 GM/100 ML VIAL IVPB ×2 (00:40→05:53)
[2024-01-04 04:00] VITALS: PULSE 70
[2024-01-04 04:49] VITALS: BP 118/50; PULSE 77; RESP 20; TEMP 36.5; O2SAT 100
[2024-01-04 05:21] LABS: Basophils Percent Auto 0.8 % (0.2-1.2); Eosinophils Absolute Auto 0.1 K/mm3 (0-0.3); Eosinophils Percent Auto 3.9 % (0-4.4); Hematocrit 36.7 % (37.0-47.0); Hemoglobin 11.9 g/dL (12.0-15.0); Immature Granulocyte Absolute 0.01 K/mm3 (0.00-0.031); Immature Granulocyte Percent A 0.3 % (0-0.5); Lymphocytes Percent Auto 30.8 % (18.3-44.2); Mean Corpuscular HGB Conc 32.4 g/dl (32-36); Mean Corpuscular Hemoglobin 32.3 pg (26-34); Mean Corpuscular Volume 99.7 fl (80-100); Mean Platelet Volume 10.2 fl (7.4-10.4); Monocytes Absolute Auto 0.3 K/mm3 (0.1-0.6); Monocytes Percent Auto 9.5 % (2.6-8.5); Neutrophils Percent Auto 54.7 % (45.5-73.1); Platelet Count Result 196 k/mm3 (150-375); Red Blood Count 3.68 M/mm3 (4.2-5.4); Red Cell Distribution Width 15.3 % (11.5-14.5); White Blood Count 3.6 K/mm3 (4.5-10.0)
[2024-01-04 05:29] LABS: Alanine Aminotransferase 14 U/L (6-35); Albumin Level 3.6 g/dL (3.5-5.1); Alkaline Phosphatase 78 U/L (38-126); Anion Gap 7 mmol/L (4-12); Aspartate Amino Transferase 27 U/L (14-36); Bilirubin,Total 1.1 mg/dL (0.2-1.3); Blood Urea Nitrogen 20 mg/dL (7-17); Carbon Dioxide 30 mmol/L (22-30); Chloride 102 mmol/L (98-107); Estimated Glomerular Filt Rate > 60; Glucose 90 mg/dL (65-110); Sodium 139 mmol/L (137-145)
[2024-01-04] MEDS: diphenhydrAMINE HCl CAP 25 MG CAPSULE PO (05:52)
[2024-01-04] MEDS: traMADol HCL (*CRX) 50 MG TABLET PO (05:52)
[2024-01-04] MEDS: LEVOTHYROXINE SODIUM 75 MCG TABLET PO (05:53)
--- NOTE | 2024-01-04 07:33 | PM.DS ---
DS: Admitting Diagnosis Discharge Date 01/04/2024 0930 Admitting Diagnosis Cellulitis of the right cheek DS: Discharge Diagnosis Discharge Diagnosis (1) Cellulitis of right external cheek: Code(s): L03.211 - Cellulitis of face Status: Acute Assessment and Plan: New deficits of facial numbness starting on 01/01 at 12:30 p.m. No CVA seen on CTA of head and neck. - presented to the ED with complaints of right-sided cheek swelling and numbness - numbness is better swelling is still present - CXR: No acute cardiopulmonary pathology. - CTA: Normal CTA head and neck. Percent stenosis per NASCET criteria is 0%. - CTA confirmed cellulitis of the right cheek per radiology - neurology consulted - brain MRI w/wo ordered per Neurology request, however unable to be done due to patient's back hardware - neuro checks Q6H - start IV Unasyn - Contiue to monitor cheek swelling - Most likely can DC on oral antibiotics in the am (2) Hypertension: Qualifiers: Hypertension type: essential hypertension Qualified Code(s): I10 - Essential (primary) hypertension Code(s): I10 - Essential (primary) hypertension Status: Acute Assessment and Plan: Current BP 123/59 No current home medications Trend BP Adjust therapy as indicated (3) Hypothyroidism: Qualifiers: Hypothyroidism type: acquired Qualified Code(s): E03.9 - Hypothyroidism, unspecified Code(s): E03.9 - Hypothyroidism, unspecified Status: Acute Assessment and Plan: Continue levothyroxine 75 mcg daily (4) History of DVT (deep vein thrombosis): Code(s): Z86.718 - Personal history of other venous thrombosis and embolism Status: Acute Assessment and Plan: Continue home eliquis (5) HPV in female: Code(s): B97.7 - Papillomavirus as the cause of diseases classified elsewhere Status: Acute Assessment and Plan: Has a history of HPV of the coccyx Continue home acyclovir No indication of break out Plan Diet: Heart healthy GI Prophylaxis: Not currently indicated DVT Prophylaxis: SCDs Lines: Peripheral Code Status: Full code DS: Summary Hospital Course Hospital Course: Patient is a 78 year old female with a past medical history of SLE, aortic stenosis, eocddsf-ukxot-kvlru disease, DVT, hypothyroidism, HTN, HLD, colitis, and GERD who presented with right sided facial swelling and numbness that started at 12:30 pm on day of admission. Chest x-ray shows no acute cardiopulmonary pathology. Head and neck CTA shows no stenosis or occlusion. Did have it re-evaluated and did show cellulitis of the right cheek. MRI of the brain showed normal aging brain with tiny focus of nonspecific subcortical white matter T2 hyperintensity in the posterior right frontal lobe. Patient was initiate on unasyn. She denies any chest pain, shortness of breath, nausea, vomiting, diarrhea, constipation, weakness or fatigue. Status at Discharge Functional status at discharge: independent ambulation Overall status at discharge: patient is progressing back to baseline Time Spent with Patient Time attestation: Total time spent providing and/or coordinating discharge services: 48 minutes Time spent: Greater than 30 minutes Specific discharge activities: Diagnostic testing, chart review, developing a treatment plan, education, care coordination documentation, physical exam, result review Exam Narrative: General: well-nourished, well-appearing 78-year-old female, sitting up in bed, comfortable, NARD Neuro: awake, alert and oriented x4, speech clear, no focal neuro deficits noted HEENMT: normocephalic, atraumatic, EOMI, sclerae anicteric, moist oral mucosa, mild right-sided cheek swelling Respiratory: Clear to auscultation bilaterally without crackles, rhonchi or wheezes, nonlabored breathing Cardio: regular rate, regular rhythm with S1-S2 Abdomen: nondistende
[2024-01-04 08:00] VITALS: PULSE 71; O2SAT 98
[2024-01-04] MEDS: CYANOCOBALAMIN 500 MCG TABLET PO (08:05)
[2024-01-04] MEDS: APIXABAN 2.5 MG TABLET PO (08:05)
[2024-01-04] MEDS: MULTIVITAMINS /C LUTEIN (CENTRUM SILVER) TABLET *BKC 1 TAB PO (08:05)
[2024-01-04] MEDS: CALCIUM CARBONATE (OSCAL) 500 MG TABLET PO (08:05)
[2024-01-04] MEDS: ACYCLOVIR 400 MG TABLET PO (08:05)
--- NOTE | 2024-01-04 08:48 | WPDNEUROPN ---
Progress Note: A&P Assessment and Plan (1) Cellulitis of right external cheek: Code(s): L03.211 - Cellulitis of face Status: Acute (2) Numbness: Code(s): R20.0 - Anesthesia of skin Status: Acute (3) Facial numbness: Code(s): R20.0 - Anesthesia of skin Status: Acute (4) Facial swelling: Code(s): R22.0 - Localized swelling, mass and lump, head Status: Acute Plan Lidia Ozuna is a 78 year old female with a history of lupus, vitamin D deficiency, TMJ, HTN, hypothyroidism, DVT on chronic anticoagulation presenting for evaluation of numbness in the R lower face. MRI brain did not show any evidence of stroke. She has some swelling in the R mandibular region as confirmed by imaging suggestive of cellulitis which could have caused irritation of the mandibular branch of fifth cranial nerve on the right. Subjective Date/time seen: 01/04/24 08:48 Interval history: Lidia Ozuna is a 78 year old female with a history of lupus, vitamin D deficiency, TMJ, HTN, hypothyroidism, DVT on chronic anticoagulation presenting for evaluation of numbness in the R lower face. She started to develop R sided lower facial numbness around 1230 PM on 01/01. She numbness first started in the middle of the bottom lip to the corner of the lip on the R side. She noted swelling in the R cheek area. She is on acyclovir already. She presented to the ER where her symptoms appeared to be resolving. Her CTA brain/carotid did not show any acute changes on the CT and vessel imaging was normal. She had a recent cardiac cath done on 12/29. She sensory changes around her lip have resolved. Patient has been started on Unasyn but hospitalist due to concerns for possibly infectious etiology of cheek swelling. She is reporting pain and weakness in the proximal upper extremities for the past few days as well. MRI brain was done which did not show any evidence of stroke. Hospitalist had radiology look at the initial CT again, and it was noted that she has soft tissue swelling with subcutaneous stranding in the R mandible, which may be suggestive of cellulitis. Her CK is normal. Aldolase is pending. Review of Systems Review of Systems: All systems reviewed & are unremarkable except as noted in HPI and below Exam Const: General: comfortable and no acute distress HENMT: Mouth: Yes moist mucous membranes Other: mild swelling of the R lower cheek area Eyes: Pupils: Equal, round and reactive pupils present Resp: Effort & Inspection: normal respiratory effort Skin: General skin exam: normal color Neuro: Other: Pupils equal and reactive bilaterally, EOMI, facial strength symmetric, facial sensation intact, tongue protrudes midline, palate midline. Shoulder abduction is 4/5 bilaterally, but strength with elbow extension and flexion is normal. Lower extremity strength is 4+/5 bilaterally. Sensation is symmetric bilaterally. FNF normal bilaterally. Language comprehension and fluency intact. Gait deferred. Extrem: General: normal to inspection Psych: Mental Status: mental status grossly normal Affect: normal affect Objective Data Vital Signs Vital Signs: Vital Signs - 24 hr 01/03/24 12:02 01/03/24 14:00 01/03/24 16:03 Temperature 36.4 C Pulse Rate 72 78 84 Respiratory Rate 17 Blood Pressure 118/50 L Pulse Oximetry 99 Oxygen Delivery 01/03/24 20:53 01/03/24 20:00 01/04/24 04:49 Temperature 36.7 C 36.5 C Pulse Rate 84 77 Respiratory Rate 20 20 Blood Pressure 120/52 L 118/50 L Pulse Oximetry 99 100 Oxygen Delivery Room Air 01/03/24 20:00 01/04/24 00:00 01/04/24 04:00 Temperature Pulse Rate 73 69 70 Respiratory Rate Blood Pressure Pulse Oximetry Oxygen Delivery 01/04/24 08:00 Temperature Pulse Rate Respiratory Rate Blood Pressure Pulse Oximetry 98 Oxygen Delivery Room Air Intake/Output Intake/Output: Intake & Output 01/01/24 0
[2024-01-07 15:43] LABS: Aldolase 2.5 U/L (< OR = 8.1)
== END 2024-01-04 11:47 | disposition home or self-care (01) | DRG 603 ==
LOC: ANHED 13:37 → ANH2MED 18:19
PROVIDERS: Student in an Organized Health Care Education/Training Program; Admitting Provider Hospitalist; Emergency Provider Nurse Practitioner Family; PCP Internal Medicine; Visit Provider Nurse Practitioner
DX: L03.211 Cellulitis of face (principal); I10 Essential (primary) hypertension; E03.9 Hypothyroidism, unspecified; E87.6 Hypokalemia; E78.5 Hyperlipidemia, unspecified; I35.0 Nonrheumatic aortic (valve) stenosis; K21.9 Gastro-esophageal reflux disease without esophagitis; M32.9 Systemic lupus erythematosus, unspecified; Z86.718 Personal history of other venous thrombosis and embolism; Z86.19 Personal history of other infectious and parasitic diseases; Z79.01 Long term (current) use of anticoagulants; Z86.14 Personal history of Methicillin resistant Staphylococcus aureus infection; Z98.84 Bariatric surgery status; Z96.653 Presence of artificial knee joint, bilateral
CPT/HCPCS: 36415; 70496; 70498; 70553; 71045; 80053; 81003; 82085; 82150; 82550; 82565; 84484; 85025; 85610; 85730; 86140; 93005; 99285; A9270; A9577; J0295; Q9967

== ENCOUNTER 2024-03-24 10:00 | Outpatient (RCR) | payer MEDICARE, OTHER, SELFPAY ==
--- NOTE | 2024-02-22 16:34 | OPREHPOC ---
Outpatient Therapy Plan of Care This is a Multidisciplinary Plan of Care that may contain components documented by all disciplines (PT, OT, and ST.) PT Problem 1 PT Problem #1 Knowledge Deficit PT Goal 1 Goal / Goal Update Warren with HEP Target Visit 5 PT Problem 2 PT Problem #2 Pain PT Goal 1 Goal / Goal Update Report 50% improvement in intensity and frequency of stacey hand pain and numbness Target Visit 10 PT Problem 3 PT Problem #3 Impaired Strength PT Goal 1 Goal / Goal Update Improve stacey shoulder external rotation strength to 4/5 to improve shoulder stabilization for ADL performance Target Visit 10 PT Goal 2 Goal / Goal Update Patient will demonstrate ability to perform shelf lifts of 2# x 5 with no increased shoulder and cervical pain Target Visit 10 PT Goal 1 Goal / Goal Update Improve stacey hip abduction ROM to 35 degrees to improve gross hip mobility Target Visit 10 PT Goal 2 Goal / Goal Update Improve stacey hip abduction strength to 4/5 to improve lateral stability with ADLs Target Visit 10
--- NOTE | 2024-02-22 16:35 | PTOPEVAL1 ---
Assessment and note entered by Taiwo Bhatt, PT Evaluation Information Assessment Status Evaluation ICD-10 Condition Codes (PT) Pain in low back M54.50,M25.511,M25.512 Onset Chronic Subjective Information Reports that she is having pain in her shoulders that radiates down to her hands. She is having trouble laying on her left side and feel numbness in her left hand. She is also having burning in her hands. Hand pain is worse when she tries to sleep as she has trouble sleeping on her back. She is right handed. Her back pain is in her right glute and radiates into her right thigh. Feels that her hands and shoulders are a bigger issue right now. Reported Pain Level Pain Score 6: Self Report Assessment PT Clinical Summary Patient presents with signs and symptoms consistent with cervical radiculopathy and stacey shoulder tendinopathy. Back pain increased by poor hip mobility and stability. Patient will benefit form skilled therapy to address objective and functional deficits to improve gross mobility, strength, and pain. Plan of Care Interventions Gait Training,Manual Therapy,Neuro Re-education, Therapeutic Activities,Therapeutic Exercise PT Services Indicated Yes Treatment Frequency and 2x/week for 10 visits Duration These treatments will address the objective and functional deficits as defined above. The patient will be advanced safely and appropriately in order for the patient to progress towards his/her prior level of function. Additional exercises will be introduced and as well as a comprehensive home exercise program upon discharge, if needed, ?to ensure carryover of functional gains achieved in the clinic. This treatment plan has been reviewed and agreement upon by the patient.
--- NOTE | 2024-03-24 10:59 | OPREHPOC ---
Outpatient Therapy Plan of Care This is a Multidisciplinary Plan of Care that may contain components documented by all disciplines (PT, OT, and ST.) PT Problem 1 PT Problem #1 Knowledge Deficit PT Goal 1 Goal / Goal Update Malin with HEP Target Visit 5 Progress Met PT Problem 2 PT Problem #2 Pain PT Goal 1 Goal / Goal Update Report 50% improvement in intensity and frequency of stacey hand pain and numbness Target Visit 10 Progress Met PT Problem 3 PT Problem #3 Impaired Strength PT Goal 1 Goal / Goal Update Improve stacey shoulder external rotation strength to 4/5 to improve shoulder stabilization for ADL performance Target Visit 10 Progress Partially Met PT Goal 2 Goal / Goal Update Patient will demonstrate ability to perform shelf lifts of 2# x 5 with no increased shoulder and cervical pain Target Visit 10 Progress Met PT Goal 1 Goal / Goal Update Improve stacey hip abduction ROM to 35 degrees to improve gross hip mobility Target Visit 10 Progress Met PT Goal 2 Goal / Goal Update Improve stacey hip abduction strength to 4/5 to improve lateral stability with ADLs Target Visit 10 Progress Partially Met
--- NOTE | 2024-03-24 10:59 | PTOPDC ---
Assessment and note entered by Taiwo Bhatt, PT Evaluation Information Assessment Status Evaluation ICD-10 Condition Codes (PT) Pain in low back M54.50,M25.511,M25.512 Onset Chronic Subjective Information Lei reports that she has seen a lot of improvement in pain at this time. She is still somewhat concerned that she continues to have numbness in her hands. Feels that she is moving better and would like to get an MRI to assess structural changes. Would like to discharge from therapy at this time with HEP. Reported Pain Level Pain Score 0,0,4,2: Self Report Assessment PT Clinical Summary Patient has made excellent ROM progress at this time in cervical spine, shoulders, and hips. This has correlated to improved subjective reports as her pain has significantly improved. 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 Patient to be discharged at this time per request to HEP. Plan of Care PT Services Indicated D/C to HEP
== END 2024-04-22 13:49 | disposition home or self-care (01) ==
LOC: ANHPT 10:00
PROVIDERS: PCP Internal Medicine; Visit Provider Nurse Practitioner
DX: M54.50 Low back pain, unspecified (principal); M25.511 Pain in right shoulder; M25.512 Pain in left shoulder
CPT/HCPCS: 97110; 97116; 97140; 97161; 97530

== ENCOUNTER 2024-04-10 14:25 | Outpatient (CLI) | payer MEDICARE, OTHER, SELFPAY ==
--- NOTE | ~2024-04-10 | MM_ITS ---
EXAMINATION: MM screening jhoana BI w venita HISTORY: Screening TECHNIQUE: Craniocaudal and mediolateral oblique 3-D tomosynthesis images were obtained and synthetic 2-D images were generated. CAD analysis was submitted and interpreted. COMPARISON: Comparison to multiple prior studies sequentially, with oldest reviewed study dated 05/26. BREAST PARENCHYMAL COMPOSITION: Not dense: There are scattered areas of fibroglandular density. FINDINGS: There is no evidence of suspicious mass, calcification, or architectural distortion to sugg est malignancy in either breast. There has been no suspicious interval change. IMPRESSION: 1. No mammographic evidence of malignancy. 2. Recommend routine screening mammography in one year. BI-RADS Category 1: Negative Reviewed, dictated and finalized at location B.
== END 2024-04-10 14:26 | disposition home or self-care (01) ==
LOC: ANHIMG 14:26
PROVIDERS: PCP Internal Medicine; Visit Provider Internal Medicine
DX: Z12.31 Encounter for screening mammogram for malignant neoplasm of breast (principal)
CPT/HCPCS: 77063; 77067

== ENCOUNTER 2024-05-28 11:02 | Outpatient (CLI) | payer MEDICARE, OTHER, SELFPAY ==
[2024-05-28 12:56] LABS: Alanine Aminotransferase 16 U/L (6-35); Albumin Level 3.6 g/dL (3.5-5.1); Alkaline Phosphatase 66 U/L (38-126); Anion Gap 2 mmol/L (4-12); Aspartate Amino Transferase 40 U/L (14-36); Bilirubin,Total 1.4 mg/dL (0.2-1.3); Blood Urea Nitrogen 28 mg/dL (7-17); Carbon Dioxide 31 mmol/L (22-30); Chloride 103 mmol/L (98-107); Estimated Glomerular Filt Rate > 60; Glucose 84 mg/dL (65-110); Sodium 136 mmol/L (137-145)
[2024-05-28 13:00] LABS: Basophils Percent Auto 0.9 % (0.2-1.2); Eosinophils Absolute Auto 0.1 K/mm3 (0-0.3); Eosinophils Percent Auto 1.6 % (0-4.4); Hematocrit 34.4 % (37.0-47.0); Hemoglobin 10.8 g/dL (12.0-15.0); Immature Granulocyte Absolute 0.01 K/mm3 (0.00-0.031); Immature Granulocyte Percent A 0.2 % (0-0.5); Lymphocytes Absolute Auto 0.73 K/mm3 (0.9-3.2); Lymphocytes Percent Auto 16.4 % (18.3-44.2); Mean Corpuscular HGB Conc 31.4 g/dl (32-36); Mean Corpuscular Hemoglobin 32.7 pg (26-34); Mean Corpuscular Volume 104.2 fl (80-100); Mean Platelet Volume 10.9 fl (7.4-10.4); Monocytes Absolute Auto 0.4 K/mm3 (0.1-0.6); Monocytes Percent Auto 8.1 % (2.6-8.5); Neutrophils Absolute Auto 3.3 K/mm3 (1.3-6.7); Neutrophils Percent Auto 72.8 % (45.5-73.1); Platelet Count Result 150 k/mm3 (150-375); White Blood Count 4.5 K/mm3 (4.5-10.0)
[2024-05-28 13:14] LABS: Vitamin D 25 Hydroxy 43.7 ng/mL
[2024-05-28 13:31] LABS: Add Urine Microscopic? YES; Appearance Urine Clear (Clear); Bacteria Urine None Seen /hpf; Bilirubin Urine 1+ (Negative); Blood Urine Negative (Negative); Color Urine Dark Yellow (Yellow); Glucose Urine UA Negative (Negative); Ketones Urine Negative (Negative); Leukocyte Esterase Ur Trace LEU/UL (Negative); Nitrate Urine Negative (Negative); Non Pathogenic Casts 0-2; Protein Urine Negative (Negative); RBC Urine 0-2 /hpf (0-2); Specific Grav Ur 1.028 (1.001-1.035); Squamous Epithelial Cell Urine None Seen /hpf (Few); WBC Urine 0-5 /hpf (0-3); pH Urine 5.5 (5.0-9.0)
== END 2024-05-28 11:03 | disposition home or self-care (01) ==
LOC: ANHGOSHLAB 11:06
PROVIDERS: Nurse Practitioner; PCP Internal Medicine; Visit Provider Nurse Practitioner
DX: R30.0 Dysuria (principal); R50.9 Fever, unspecified; E55.9 Vitamin D deficiency, unspecified
CPT/HCPCS: 36415; 80053; 81001; 82306; 85025

== ENCOUNTER 2024-12-01 14:40 | Outpatient (CLI) | payer MEDICARE, SELFPAY ==
[2024-12-01 14:55] LABS: Hematocrit 38.3 % (37.0-47.0); Hemoglobin 12.7 g/dL (12.0-15.0); Immature Granulocyte Absolute 0.01 K/mm3 (0.00-0.031); Immature Granulocyte Percent A 0.2 % (0-0.5); Lymphocytes Absolute Auto 1.04 K/mm3 (0.9-3.2); Lymphocytes Percent Auto 25.1 % (18.3-44.2); Mean Corpuscular HGB Conc 33.2 g/dl (32-36); Mean Corpuscular Hemoglobin 31.6 pg (26-34); Mean Corpuscular Volume 95.3 fl (80-100); Mean Platelet Volume 10.4 fl (7.4-10.4); Monocytes Absolute Auto 0.3 K/mm3 (0.1-0.6); Monocytes Percent Auto 7.5 % (2.6-8.5); Neutrophils Absolute Auto 2.7 K/mm3 (1.3-6.7); Neutrophils Percent Auto 65.2 % (45.5-73.1); Platelet Count Result 158 k/mm3 (150-375); Red Blood Count 4.02 M/mm3 (4.2-5.4); White Blood Count 4.1 K/mm3 (4.5-10.0)
--- OUTSIDE RECORDS SUMMARY | 2024-12-01 15:50 | XMS_ITS | Referral Summary ---
Author Organization [facility] [address] [facility] [address] Address [address] [place] [address] Care Team Providers Care Hot Sealing Machine Operator Name Role Phone Mariaa Joiner DO Primary Care Provider [phone] Encounters Date Type Department Care Team Description 09/15/2024 12:45 PM CDT Office Visit [facility] Card[facility] [address] [place] [address] Anju Abdi MD S/p TAVR (transcatheter aortic valve replacement), bioprosthetic (Primary Dx); Mixed hyperlipidemia; Essential hypertension from Last 3 Months Allergies Active Allergy Reactions Criticality Noted Date Comments Amitriptyline Other (See comments) Low 12/17/2023 Amoxicillin Unknown 01/30/2024 Atorvastatin Chest tightness Medium 12/17/2023 Ceftriaxone Rash Medium 12/17/2023 Codeine Nausea & Vomiting Low Duloxetine Other (See comments) Low 12/17/2023 Hydrocodone-Acetaminophen Nausea only,Vomiting Low 12/17/2023 Naproxen Other (See comments) Low 12/17/2023 Pravastatin Muscle pain Medium 12/17/2023 Rosuvastatin Muscle pain Medium 12/17/2023 Simvastatin Muscle pain Medium 12/17/2023 Medications CALCIUM ORAL Take 3 tablets by mouth 2 (two) times a day 01/27/20 11 Active furosemide (LASIX) 20 mg tablet Take 1 tablet (20 mg total) by mouth every morning 03/02/20 14 Active levothyroxine (SYNTHROID, LEVOTHROID) 75 mcg tablet Take 1 tablet (75 mcg total) by mouth every morning 03/02/20 14 Active traMADol (ULTRAM) 50 mg tablet Take 1 tablet (50 mg total) by mouth every 6 (six) hours as needed 01/27/20 11 Active ELIQUIS 2.5 mg tablet 1 tablet (2.5 mg total) 2 (two) times a day 12/06/19 18 Active omeprazole (PriLOSEC) 40 mg capsule Take 1 capsule (40 mg total) by mouth every morning 01/16/20 18 Active cyanocobalamin, vitamin B-12, (VITAMIN B-12 ORAL) Take 500 mcg by mouth every morning Active famotidine (PEPCID) 10 mg tablet Take 1 tablet (10 mg total) by mouth 2 (two) times a day as needed Active fluticasone propionate (FLONASE) 50 mcg/actuation nasal spray Administer 1 spray into each nostril as needed for allergies Active acyclovir (ZOVIRAX) 400 mg tablet Take 1 tablet (400 mg total) by mouth 2 (two) times a day Active sertraline (ZOLOFT) 50 mg tablet Take 1 tablet (50 mg total) by mouth nightly Active clobetasoL (TEMOVATE) 0.05 % cream Apply 1 Application topically as needed Active ondansetron ODT (ZOFRAN-ODT) 4 mg disintegrating tablet Take 1 tablet (4 mg total) by mouth every 8 (eight) hours as needed for nausea or vomiting Active biotin 1 mg tablet Take 1 tablet (1,000 mcg total) by mouth 2 (two) times a day Active multivit-min/iron fum/folic ac (ONE-A-DAY WOMEN'S COMPLETE ORAL) Take 1 tablet/capsule by mouth every morning Active aspirin 81 mg chewable tabletIndications: coronary artery disease Take 1 tablet (81 mg total) by mouth daily 30 tablet 11 02/08/20 24 025 Active Additional Information Patient not taking.Reported on 09/15/2024 Active Problems Problem Noted Date Diagnosed Date S/p TAVR (transcatheter aort ic valve replacement), bioprosthetic 02/06/2024 Vitamin D deficiency 01/17/2024 Pulmonary embolism 01/17/2024 Migraine 01/17/2024 Limited lupus erythematosus 01/17/2024 Hypothyroidism 01/17/2024 Hyperlipidemia 01/17/2024 Gastroesophageal reflux disease 01/17/2024 Edema 01/17/2024 Deep vein thrombosis (DVT) 01/17/2024 Brachial neuritis 01/17/2024 Congenital pes cavus 11/22/2022 Chronic anemia 02/13/2022 Essential hypertension 12/20/2020 History of DVT (deep vein thrombosis) 12/20/2020 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 Never 01/30/2024 Q2: How many drinks containi ng alcohol do you have on a typical day when you are drinking? Patient does not drink Q3: How often do you have si x or more drinks on one occasion? Never 01/30/2024 Personal Safety Answer Date Recorded Have you ever been in or are you currently in a harmful physical or emotional relationship or is someone making you feel afraid or unsafe? 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 Gender Identity Not on file Sexual Orientation Not on file Last Filed Vital Signs Vital Sign Reading Time Taken Comments Blood Pressure 110/66 09/15/2024 12:47 PM CDT Pulse 74 09/15/2024 12:47 PM CDT Temperature 37 C (98.6 F) 02/07/2024 12:26 PM CDT Respiratory Rate 18 02/07/2024 12:26 PM CDT Oxygen Saturation 94% 09/15/2024 12:47 PM CDT Inhaled Oxygen Concentration - - Weight 69.9 kg (154 lb 3.2 oz) 09/15/2024 12:47 PM CDT Height 149.9 cm (4' 11) 09/15/2024 12:47 PM CDT Body Mass Index 31.14 09/15/2024 12:47 PM CDT Plan of Treatment Not on file Medical Devices Implanted Type Area Dog Raiser Device Identifier Shelf Expiration Date Model / Serial / Lot [employer] Device Closure Vascade Od5 Fr Femoral Artery [id number] - [id number] Implanted:Qty: 1 on 12/25/2023 by Anju Abdi MD at [facility] 07/17/2025 [id number]-0 [id number] / / [id number] [employer] System Closure Repair Femoral Artery Suture Mediated Perclose Prostyle 78292-22 - [id number] Implanted:Qty: 1 on 02/06/2024 by Anju Abdi MD at [facility] 11/22/2025 [id number] / / [id number] [employer] Closure Repair Femoral Artery Suture Mediated Perclose Prostyle 94972-22 - [id number] Implanted:Qty: 1 on 02/06/2024 by Anju Abdi MD at [facility] [employer] 11/22/2025 [id number] / / [id number] [employer] Valve Aortic Trnscath Kirstie 3 Ultra Resilia 23mm [id number] - [id number] - [id number] Implanted:Qty: 1 on 02/06/2024 by Anju Abdi MD at [facility] [employer] 01/21/2026 [id number] / [id number] / [employer] Device Closure Vascade Od5 Fr Femoral Artery [id number] - [id number] Implanted:Qty: 1 on 02/06/2024 by Anju Abdi MD at [facility] Medical [facility] 09/18/2025 700-500DX-0 [id number] / / [id number] Insurance MEDICARE [employer] SENIOR SUPPLEMENT [address] [facility]CIAL [facility] MEDICARE ADVANTAGE Advance Directives For more information, please contact: [phone] * Full Code (Latest Code Status on File) Date Activated Date Inactivated Comments 12/25/2023 10:31 AM 12/25/2023 4:57 PM Care Teams Hot Sealing Machine Operator Relationship Specialty Start Date End Date Mariaa Joiner DO PCP - General Internal Medicine 01/08/17
--- OUTSIDE RECORDS SUMMARY | 2024-12-01 15:50 | XMS_ITS | Continuity of Care Document ---
Author Organization [facility] Address [address] [place] [address] Phone Care Team Providers Care Outside Rigger Name Role Phone Deborah HOOD, Woodrow Unavailable Unavailable Advance Directives Directive Yes / No Effective Date File Name No Information Encounters Encounter Description Practice Location Reason(s) For Visit Diagnoses Date Provider Providers Copied on Encounter [facility], [address], [place], [place], [id number], [place] tel:[phone] [facility] Deborah Troy. [address] , [place], [place], [id number], [place]. tel:[phone] Family History Family Member Type Diagnosis Age At Onset No Information Payers Payer name Insurance type Covered republican ID Authoriza tion(s) No Information Social History Type Description Quantity Date Captured Comments Sex Female Smoking Status No Information Chief Complaint And Reason For Visit No Information Reason For Referral Reason For Referral No Information History Of Present Illness Encounter Date Complaint History Of Prese nt Illness No Information Functional Status Date Functional Assessmen t No Information Instructions Date Instruction Additional Infor mation No Information Assessments Type Assessment Date No Information Patient Care Teams Name Effective Dates (start - stop) Status Members No Information
--- OUTSIDE RECORDS SUMMARY | 2024-12-01 15:50 | XMS_ITS | Encounter Summary ---
Author Organization [facility] Address [address] [place] [place] [address] Care Team Providers Care Sieve Maker Name Role Phone Mariaa Joiner DO Primary Care Provider [phone] Encounter Details Date Type Department Care Team (Late st Contact Info) Description 04/11/2023 Lab Requisition [facility] - DermPath Lab [address] [place] [id number] Jay Jay Whitley MD [address] [facility] [address] [place] [address] Social History Tobacco Use Types Packs/Day Years Used Date Smoking Tobacco: Never Assessed Comments Unknown Sex and Gender Information Value Date Recorded Sex Assigned at Not on file Legal Sex Female 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 Gender Identity Not on file Sexual Orientation Not on file documented as of this encounter Plan of Treatment Not on file documented as of this encounter Procedures Procedure Name Priority Date/Time Associated Diagnosis Comments DERMATOPATHOLOGY Routine 04/10/2023 12:0 0 AM CDT documented in this encounter Results * DERMATOPATHOLOGY (04/10/2023 12:00 AM CDT) Case Report Dermatopathology Report Case: [id number] Authorizing Provider: Jay Jay Whitley MD Collected: 04/10/2023 12:00 AM Ordering Location: [facility] Lab Received: 04/11/2023 04:52 PM Pathologist: Miklaa Ridley MD Specimen: Skin, right lateral cheek 12:22 PM CDT DERMATOPATHOLOGY LABORATORY Final Diagnosis Specimen A. SKIN, right lateral cheek: BENIGN VERRUCOUS KERATOSIS, INFLAMED (L82.1) (see microscopic description) 3 12:22 PM T DERMATOPATHOLOGY LABORATORY at 1222 CDT Clinical History Nervus vs Hidrocystoma vs BCCA 3 12:22 PM T DERMATOPATHOLOGY LABORATORY Gross Description Specimen A: Received is one formalin filled container labeled with the patient's name and designated right lateral cheek. The specimen consists of a shave biopsy measuring 4x3x4 mm. Jar 0. 3 12:22 PM T DERMATOPATHOLOGY LABORATORY Microscopic Description Specimen A. SKIN, right lateral cheek: Sections show hyperkeratosis, papillomatosis, hypergranulosis, and acanthosis. Inflammatory cells are present within the dermis. These histological findings can be seen in a verruca vulgaris or a seborrheic keratosis. Additional deeper sections were obtained and reviewed. 12:22 PM T DERMATOPATHOLOGY LABORATORY Disclaimer An external and internal positive and negative controls are appropriate for the histochemical, immunohistochemical and immunofluorescence stain(s) in this case (if any), except where stated explicitly. The performance characteristics of the stain(s) cited in this report were developed and its performance characteristic determined by the Dermatopathology Laboratory at [facility], directed by Dr. Zi Fernández. These tests need not be, and therefore are not, approved by the [place] Food and Drug Administration. The tests are used for clinical purposes. Billing Codes Specimen Charges Stain Charges 89191 1 3 12:22 PM CDT DERMATOPATHOLOGY LABORATORY Embedded Images 3 12:22 PM CDT DERMATOPATHOLOGY LABORATORY Pathology/Cytolog y TISSUE SPECIMEN FROM SKIN / Unknown 04/10/2023 04/11/2023 4:52 PM CDT us Jay Jay Whitley MD LAB - PATHOLOGY/CYTOLOGY ORDER TONI Final Result DERMATOPATHOLOGY LABORATORY [facility] - Department of Dermatology [address], [address] [phone] documented in this encounter Visit Diagnoses Not on filedocumented in this encounter Care Teams Sieve Maker Relationship Specialty Start Date End Date Mariaa Joiner DO PCP - General 12/22/19 documented as of this encounter
--- OUTSIDE RECORDS SUMMARY | 2024-12-01 15:50 | XMS_ITS | Clinical Summary ---
Author Organization [facility] [address] Address [address] [place] [address] Care Team Providers Care [employer] Supervisor Name Role Phone Mariaa Joiner Primary Care Provider [phone]- [phone] Allergies Active Allergy Reactions Criticality Noted Date [...] Date Nonrheumatic aortic valve stenosis 12/06/2020 09/15/2024 Encounters Date Type Department Care Team Description 09/15/2024 12:45 PM CDT Office Visit [facility] [address] [place] [address] Anju Abdi MD S/p TAVR (transcatheter aortic valve replacement), bioprosthetic (Primary Dx); Mixed hyperlipidemia; Essential hypertension from Last 3 Months Surgical History Surgery Date Site/Laterality Comments BUNIONECTOMY CATARACT EXTRACTION Bilateral CHOLECYSTECTOMY CYST REMOVAL GASTRIC BYPASS SECTION x1 ROTATOR CUFF REPAIR 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 CORONARY ANGIOPLASTY 12/25/2023 SPINE SURGERY lumbar fusion JOINT REPLACEMENT Bilateral TKA Medical History Medical History Date Comments Blood clot in vein Chronic back pain GERD (gastroesophageal reflux disease) Fracture Hyperlipidemia pt denies Hypertension pt denies 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 back surge ry Measles Skin disorder 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) PONV (postoperative nausea and vomiting) Heart murmur Jswouam-Udpjh-Nkojz disease Nonrheumatic aortic (valve) stenosis Cataract Frequent UTI Hypothyroidism Arthritis Family History Medical History Relation Name Comments Heart disease Father Alcohol abuse Mother Alcohol depend ency - (Added by TW Conv) Liver disease Mother Relation Name Status Comments Father (Age 45) Mother (Age 45) Social History Tobacco Use Types Packs/Day Years [...] on file Legal Sex Female 1:37 [employer] Gender Identity Not on file Sexual Orientation Not on file Obstetrics History Last Filed Vital Signs Vital Sign Reading [...] 09/15/2024 12:47 PM CDT Plan of Treatment Health Maintenance Due Date Last Done Comments Depression Screening 1945 Hepatitis C Screening 1945 Osteoporosis Screening-Bone Density Scan 1945 DTaP/Tdap/Td Vaccine (1 - Tdap) 1957 Hepatitis B Screening 1964 Pneumococcal vaccine 65+ (1 of 2 - PCV) 1965 Zoster Vaccine (1 of 2) 1996 Well Visit 65+ 2011 Fall Risk Assessment 02/06/2025 02/07/2024 Influenza Vaccine (Season Ended) 2025 03/28/20 13 Breast Cancer Screening-Mammogram Discontinued 022 Medical Devices Implanted Type Area Tube Handler Device Identifier Shelf Expiration Date Model / Serial / Lot [facility] Device Closure Vascade Od5 Fr Femoral Artery [id number] - [id number] Implanted:Qty: 1 on 12/25/2023 by Anju Abdi MD at [facility] 07/17/2025 [id number]-[id number] / / [id number] [employer] Closure Repair Femoral Artery Suture Mediated Perclose Prostyle 04632-29 - [id number] Implanted:Qty: 1 on 02/06/2024 by Anju Abdi MD at [facility] [employer] 11/22/2025 [id number] / / [id number] [employer] Closure Repair Femoral Artery Suture Mediated Perclose Prostyle 79180-21 - [id number] Implanted:Qty: 1 on 02/06/2024 by Anju Adbi MD at [facility] [employer] 11/22/2025 [id number] / / [id number] [employer] Valve Aortic Trnscath Kirstie 3 Ultra Resilia 23mm [id number] - [id number] - [id number] Implanted:Qty: 1 on 02/06/2024 by Anju Abdi MD at [facility] [employer] 01/21/2026 [id number] / [id number] / [employer] Device Closure Vascade Od5 Fr Femoral Artery [id number] - [id number] Implanted:Qty: 1 on 02/06/2024 by Anju Abdi MD at [facility] [employer] 09/18/2025 [id number] / / [id number] [address] MEDICARE [facility] SENIOR SUPPLEMENT [employer] GENERIC [facility] MEDICARE ADVANTAGE Advance Directives For more information, please contact: [phone] * Full Code (Latest Code Status on File) Date Activated Date Inactivated Comments 12/25/2023 10:31 AM 12/25/2023 4:57 PM Care Teams [employer] Supervisor Relationship Specialty Start Date End Date Mariaa Joiner DO PCP - General Internal Medicine 01/08/17
--- OUTSIDE RECORDS SUMMARY | 2024-12-01 15:50 | XMS_ITS | Data Portability ---
Author Organization [facility] [place] Address [address] [place] [address] [place] [address] Care Team Providers Care Driver Operator Name Role Phone MARIAA WYATT Primary Care Provider Assessment Encounter Date Assessment Date Assessment LastModified by Organization Details LastModified Time 05/12/2021 05/12/2021 Annual gynecological exam performed. Patient will come back in a year unless there are new symptoms. [email or web address] Not available 05/12/2021 14:30:53 Plan of Treatment Reminders Order Date Submit Date Provider Last Modified By Organization Details Last Modified Time Details Appointments None recorded. Lab urinalysis, dipstick 2022 023 [email or web address] 1 [place], [address], [place], [address], 3 14:48:06 culture, urine 2022 023 [facility] (Lab), [address], [place], [address], 3 07:46:45 urinalysis, dipstick 2020 021 [email or web address] [place], [address], [place], [address], 15:02:55 Referral None recorded. Procedures None recorded. Surgeries None recorded. Imaging US, pelvis 2022 023 [email or web address] [address], [address], [place], [address], 3 17:14:45 US, transvagina l 2022 023 [email or web address] [place], [address], [place], [address], 3 17:14:45 US, pelvis, complete 2022 023 [email or web address] [place], [address], [place], [address], 4 05:00:46 Medication Orders nystatin-tr iamcinolone 100,000 unit/gram-0 .1 % topical ointment 2020 021 [email or web address] [id number], [address] [place], [address], 17:22:16 Patient TargetsNo targets recorded. Patient InstructionsNo instructions recorded. Reason for Referral None Reported. Results Created Date Observation Date Name Description Value Unit Range Abnormal Flag Note LastModifiedBy Organization Detail LastModifiedTime 05/12/2005/12/2021 CULTU RE: URINE result report SEE RESULT S BELOW Test: Cultu re: Urine Speci men Sourc e: Urine Voide d Speci men Type: Urine Speci men Date: 05/12 4:17 PM Resul t Date: 05/13 9:51 PM Resul t Statu s: Final resul t Abnor mal: No Resul ting Lab: [facility] [address] [facility] [address] Tel: CULTU RE ----- ----- ----- --- No growt h in 1 day (dete ction level of 10,00 0 colon ies / ml.) Not Available [facility] (Lab) [address] [facility], [place], [address], 05/13/2021 22:54:54 05/12/20 21 05/12/2021 urina lysis , dipst ick Leukocytes neg Not Available [facility] [address], [place], [address], 05/12/2021 14:46:13 05/12/20 21 05/12/2021 urina lysis , dipst ick Nitrite neg Not Available [place] [address], [place], [address], 05/12/2021 14:46:13 05/12/20 21 05/12/2021 urina lysis , dipst ick Urobilinogen neg Not Available [facility] [place] [address], [place], [address], 05/12/2021 14:46:13 05/12/20 21 05/12/2021 urina lysis , dipst ick Protein neg Not Available [place] [address], [place], [address], 05/12/2021 14:46:13 05/12/20 21 05/12/2021 urina lysis , dipst ick pH 5 Not Available [place] [address], [place], [address], 05/12/2021 14:46:13 05/12/20 21 05/12/2021 urina lysis , dipst ick Specific [place] 1.000 Not Available [facility] [address], [place], [address], 05/12/2021 14:46:13 05/12/20 21 05/12/2021 urina lysis , dipst ick Ketone neg Not Available [place] [address], [place], [address], 05/12/2021 14:46:13 05/12/20 21 05/12/2021 urina lysis , dipst ick Bilirubin neg Not Available [facility] [address], [place], [address], 05/12/2021 14:46:13 05/12/20 21 05/12/2021 urina lysis , dipst ick Glucose neg Not Available [place] [address], [place], [address], 05/12/2021 14:46:13 05/12/20 21 05/12/2021 urina lysis , dipst ick Appearance clear Not Available [facility] [place] [address], [place], [address], 05/12/2021 14:46:13 05/12/20 21 05/12/2021 urina lysis , dipst ick Color yellow Not Available [place] [address], [place], [address], 05/12/2021 14:46:13 05/14/20 23 05/14/2023 urina lysis , dipst ick Leukocytes trace Not Available [facility] [place] [address], [place], [address], 05/14/2023 14:47:05 05/14/20 23 05/14/2023 urina lysis , dipst ick Nitrite normal Not Available [place] [address], [place], [address], 05/14/2023 14:47:05 05/14/20 23 05/14/2023 urina lysis , dipst ick Urobilinogen normal Not Available [facility] [address], [place], [address], 05/14/2023 14:47:05 05/14/20 23 05/14/2023 urina lysis , dipst ick Protein trace Not Available [place] [address], [place], [address], 05/14/2023 14:47:05 11/20/05/14/2023 urina lysis , dipst ick pH 5 Not Available [place] [address], [place], [address], 05/14/2023 14:47:05 05/14/20 23 05/14/2023 urina lysis , dipst ick Specific [place] 1.015 Not Available [facility] [address], [place], [address], 05/14/2023 14:47:05 05/14/20 23 05/14/2023 urina lysis , dipst ick Ketone normal Not Available [place] [address], [place], [address], 05/14/2023 14:47:05 05/14/20 23 05/14/2023 urina lysis , dipst ick Bilirubin normal Not Available [facility] [place] [address], [place], [address], 05/14/2023 14:47:05 05/14/20 23 05/14/2023 urina lysis , dipst ick Glucose normal Not Available [place] [address], [place], [address], 05/14/2023 14:47:05 05/14/20 23 05/14/2023 urina lysis , dipst ick Appearance normal Not Available [facility] [place] [address], [place], [address], 05/14/2023 14:47:05 05/14/20 23 05/14/2023 urina lysis , dipst ick Color normal Not Available [place] [address], [place], [address], 05/14/2023 14:47:05 08/19/19 22 MAMMO , scree ycndi, bilat eral No observ ation record ed. [facility] [address], [place], [address], 08/24/2021 14:16:28 05/24/20 23 05/24/2023 US, pelvi s No observ ation record ed. [facility] [address], [place], [address], 05/24/2023 15:13:33 05/24/20 23 05/24/2023 US, trans vagin al No observ ation record ed. [facility] [address], [place], [address], 05/24/2023 15:13:44 05/24/2005/24/2023 US, pelvi s No observ ation record ed. [email or web address] [address], [place], [address], 05/31/2023 10:47:11 Result Notes None recorded. Problems Name Problem SNOMED Code Status Onset Date Resolution Date Notes Provider Name and Address Organization Details Recorded Time Screenin g for malignan t neoplasm of rectum Completed 201805/12/2021 Encounter for screening for malignant neoplasm of rectum;Pr actice ID: 0001 [facility] 12:04:49 Screenin g for malignan t neoplasm of cervix Completed 201805/12/2021 Encounter for screening for malignant neoplasm of cervix;Pr actice ID: 0001 Aura friedman [facility] 12:04:[address] Concept Completed 201505/12/2021 Encntr for general adult medical exam w/o abnormal findings; Recorded Elsewhere : No Locati on: [facility] So urce: EHR Chron ic: N Practic e ID: 0001 Bill able Time: 01:00:00 PM Aura friedman [facility] 12:04:51 Disorder of breast [id number] Completed 201905/12/2021 Disorder of breast, unspecifi ed;Record ed Elsewhere : No Locati on: [facility] So urce: EHR Chron ic: N Practic e ID: 0001 Bill able Time: 04:07:23 PM Aura Rodriguez [facility] [address] 12:04:[address] Concept Completed 201605/12/2021 Well woman check w/o abnormal finding;R ecorded Elsewhere : No Locati on: [facility] So urce: EHR Chron ic: N Practic e ID: 0001 Bill able Time: 10:30:00 AM Aura Rodriguez [facility] 12:04:52 Bone density finding [id number] Completed 201505/12/2021 osteopeni a;Recorde d Elsewhere : No Locati on: [facility] So urce: EHR Chron ic: N Practic e ID: 0001 Bill able Time: 08:30:00 AM Aura Rodriguez [facility] 1 12:04:44 Speciali zed medical examinat ion Completed 201405/12/2021 Gynecolog ical Examinati on;Record ed Elsewhere : No Locati on: [facility] So urce: EHR Chron ic: N Practic e ID: 0001 Bill able Time: 10:00:00 AM Aura Rodriguez [facility] 1 12:04:54 Problem Notes None recorded. Procedures Surgical History Date Name Laterality Status Provider Name and Address Organization Details Recorded Time 05/12/20 21 Date of Last Pap Smear completed Filomena Chávez [facility] 05/14/2023 14:49:15 06/25/19 21 completed [facility] 05/12/2021 14:45:45 07/17/19 20 Date of Last Mammogram completed [facility] 05/12/2021 14:45:14 06/25/19 15 Gastric Bypass completed [facility] 05/14/2023 14:03:41 06/25/19 14 procedure on foot completed [facility] 05/14/2023 14:05:38 06/25/19 11 cataract surgery completed [facility] 05/14/2023 14:03:58 06/25/19 09 procedure on back completed [facility] 05/14/2023 14:05:53 06/25/19 08 repair of rotator cuff by suture completed [facility] 05/14/2023 14:04:42 06/25/19 08 cholecystectomy completed [facility] 05/14/2023 14:06:08 06/25/19 05 total knee replacement completed [facility] 05/14/2023 14:05:21 06/25/19 05 ultrasonography guided biopsy of right breast completed [facility] 05/14/2023 14:45:13 06/25/19 04 mammography guided biopsy of left breast completed [facility] 05/14/2023 14:06:51 06/25/19 01 repair of tendo achilles completed [facility] 05/14/2023 14:03:11 06/25/19 00 embolization of pulmonary artery completed [facility] 05/14/2023 14:07:18 06/25/18 80 Tubal Ligation completed [facility] 05/14/2023 14:02:21 06/25/18 69 section completed [facility] 05/14/2023 14:02:09 06/25/18 68 urinary bladder reconstruction completed Filomena Chávez [facility] 05/14/2023 14:02:44 Imaging Results None recorded. Procedure Notes None recorded. Medical Equipment None Reported. Allergies Allergen ID Allergen Name Allergen Category Reaction Reaction Severity Criticality Documentation Date Start Date Code Code System Note Provider Name and Address Organization Details Recorded Time 05412 codeine medicatio n Not available Not available Not available 06/11/2020 2670 RxNorm Comme nt: [facility]; Not Available [facility] 0 14:20:52 Medications Name Sig Start Date Stop Date Status Note LastModified by Organization Details LastModified Time multivita min tablet 04/17 completed Prescrib ed Elsewher e: Yes Loca tion: Jourdan hammer [facility] odify By: marimar denisunter DateTime : 03/24/20 15 10:00:00 AM Not Available Not Available Not Available gabapenti n 600 mg tablet take 1 tablet by oral route 3 times every day 04/17 completed Prescrib ed Elsewher e: Yes Loca tion: Jourdan hammer [facility] odify By: marimar denisunter DateTime : 03/24/20 15 10:00:00 AM Not Available Not Available Not Available Plaquenil 200 mg tablet take 1 tablet by oral route every day 05/12 completed Prescrib ed Elsewher e: Yes Loca tion: Jourdan hammer [facility] odify By: yessy Nortonte r DateTime : 03/24/20 15 10:00:00 AM Not Available Not Available Not Available tramadol 50 mg tablet take 1 tablet by oral route every 6 hours as needed 2014 active Prescrib ed Elsewher e: Yes Loca tion: Jourdan hammer [facility] odify By: yessy Nortonte r DateTime : 03/24/20 15 10:00:00 AM Not Available Not Available Not Available levothyro xine 25 mcg tablet take 1 tablet by oral route every day 2014 active Prescrib ed Elsewher e: Yes Loca tion: Jourdan hammer [facility] odify By: yessy Mcmillan r DateTime : 03/24/20 15 10:00:00 AM Not Available Not Available Not Available pantopraz ole 20 mg tablet,de layed release take 2 tablet by oral route every day 04/17 completed Prescrib ed Elsewher e: Yes Loca tion: Jourdan hammer [facility] odify By: marimar denisunter DateTime : 03/24/20 15 10:00:00 AM Not Available Not Available Not Available nystatin- triamcino lone 100,000 unit/gram -0.1 % topical ointment APPLY TO THE AFFECTED AREA(S) BY TOPICAL ROUTE 2 TIMES PER DAY NEEDED-- USE SPARINGL Y 2020 active Not Available Not Available Not Avai lable Vitamin B-12 50 mcg tablet 2014 active Prescrib ed Elsewher e: Yes Loca tion: Jourdan hammer [facility] odify By: yessy Mcmillan r DateTime : 03/24/20 15 10:00:00 AM Not Available Not Available Not Available omeprazol e 10 mg capsule,d elayed release take 2 capsule by oral route every day before a meal 05/12 completed Prescrib ed Elsewher e: Yes Loca tion: Jourdan hammer [facility] odify By: marimar denisunter DateTime : 04/17/20 17 10:30:00 AM Not Available Not Available Not Available nortripty line 10 mg capsule take 2 capsule by oral route 4 times every day 04/17 completed Prescrib ed Elsewher e: Yes Loca tion: Jourdan hammer [facility] odify By: marimar denisunter DateTime : 03/24/20 15 10:00:00 AM Not Available Not Available Not Available omeprazol e 20 mg capsule,d elayed release Take 1 capsule every day by oral route. active Not Available Not Available No t Available furosemid e 20 mg tablet take 1 tablet by oral route every day 2014 active Prescrib ed Elsewher e: Yes Loca tion: Jourdan hammer [facility] odify By: yessy Mcmillan r DateTime : 03/24/20 15 10:00:00 AM Not Available Not Available Not Available warfarin 1 mg tablet take 1 tablet by oral route every day 04/17 completed Prescrib ed Elsewher e: Yes Loca tion: Jourdan hammer [facility] odify By: marimar herzog DateTime : 03/24/20 15 10:00:00 AM Not Available Not Available Not Available Pepcid 20 mg tablet take 1 tablet by oral route 2 times every day 05/12 completed Prescrib ed Elsewher e: Yes Loca tion: Jourdan hammer [facility] odify By: marimar Hammer ncounter DateTime : 04/17/20 17 10:30:00 AM Not Available Not Available Not Available Vitamin D2 1,250 mcg (50,000 unit) capsule take 1 capsule by oral route every week 05/12 completed Prescrib ed Elsewher e: Yes Loca tion: Jourdan hammer [facility] odify By: yessy Nortonte r DateTime : 03/24/20 15 10:00:00 AM Not Available Not Available Not Available ramipril 1.25 mg capsule take 1 capsule by oral route every day 05/12 completed Prescrib ed Elsewher e: Yes Loca tion: Jourdan hammer [facility] odify By: yessy Nortonte r DateTime : 03/24/20 15 10:00:00 AM Not Available Not Available Not Available Calcium-5 00 500 mg (as calcium carbonate 1,250 mg) tablet 2014 active Prescrib ed Elsewher e: Yes Loca tion: Jourdan hammer [facility] odify By: yessy Nortonte r DateTime : 03/24/20 15 10:00:00 AM Not Available Not Available Not Available Zetia 10 mg tablet take 1 tablet by oral route every day 04/17 completed Prescrib ed Elsewher e: Yes Loca tion: Jourdan hammer [facility] odify By: marimar herzog DateTime : 03/24/20 15 10:00:00 AM Not Available Not Available Not Available biotin 1 mg tablet 2014 active Prescrib ed Elsewher e: Yes Loca tion: Jourdan hammer [facility] odify By: yessy ribera DateTime : 03/24/20 15 10:00:00 AM Not Available Not Available Not Available Eliquis 5 mg tablet take 1 tablet by oral route 2 times every day active Prescrib ed Elsewher e: Yes Loca tion: [facility] odify By: marimar herzog DateTime : 04/17/20 17 10:30:00 AM Not Available Not Available Not Available Vitals Date Recorded Body height Body mass index (BMI) Body weight Systolic blood pressure Diastolic blood pressure Provider Name and Address Organization Details Last Updated DateTime 05/12/2021 147.32 cm 34.7 kg/m2 30930.33 g 131 mm[Hg] 76 mm[Hg] Aura Rodriguez [facility] 1 14:31:10 Date Recorded Body height Body mass index (BMI) Body weight Systolic blood pressure Diastolic blood pressure Provider Name and Address Organization Details Last Updated DateTime 05/14/2023 147.32 cm 33.2 kg/m2 66681.19 g 106 mm[Hg] 70 mm[Hg] Filomena Chávez [facility] 3 14:31:23 Social History Question Answer Notes LastModified by Organizat ion Details LastModified Time Tobacco Smoking Status Never Smoker Filomena Chávez [facility] 05/14/2023 14:44:27 Are You Blind Or Do You Have Difficulty Seeing? No [email or web address] Information n ot available 05/14/2023 What Is Your Level Of Caffeine Consumption? Occasional [email or web address] Information not available 05/14/2023 In The 14 Days Before Symptom Onset, Have You Had Close Contact With A Laboratory-confirm ed COVID-19 While That Case Was Ill? No [email or web address] Information n ot available 05/14/2023 In The 14 Days Before Symptom Onset, Have You Had Close Contact With A Person Who Is Under Investigation For COVID-19 While That Person Was Ill? No Information not available 05/14/2023 Have You Been To An Area Known To Be High Risk For COVID-19? No Information not available 05/14/2023 Are You Deaf Or Do You Have Serious Difficulty Hearing? No Information not available 05/14/2023 What Type Of Diet Are You Following? REGULAR [email or web address] Information n ot available 05/14/2023 Have You Ever Been Counseled For Unhealthy Alcohol Use? No [email or web address] Information not available 05/14/2023 Do You Use Your Seat Belt Or Car Seat Routinely? Yes Information not available 05/14/2023 Do You Have Smoke And Carbon Monoxide Detectors In Your Home? Yes [email or web address] Information not available 05/14/2023 Do You Use Sunscreen Routinely? Yes [email or web address] Information not available 05/14/2023 Has Tobacco Cessation Counseling Been Provided? No [email or web address] Information not available 05/14/2023 Do You Have Difficulty Walking Or Climbing Stairs? No [email or web address] Information not available 05/14/2023 Sex: Unknown Functional Status Question Answer Note LastModified by Organizat ion Details LastModified Time Do you use any illicit or recreational drugs? No [email or web address] Information not available 05/14/2023 Do you or have you ever used any other forms of tobacco or nicotine? No [email or web address] Information not available 05/14/2023 What is your level of alcohol consumption? Occasional [email or web address] Information not available 05/14/2023 Are you able to walk? YESWOREST [email or web address] Information not available 05/14/2023 Are you able to care for yourself? Yes [email or web address] Information n ot available 05/14/2023 Do you have difficulty dressing or bathing? No [email or web address] Information not available 05/14/2023 What is your exercise level? Occasional [email or web address] Information not available 05/14/2023 Mental Status Question Answer Note LastModified by Organization D etails LastModified Time Do you feel stressed (tense, restless, nervous, or anxious, or unable to sleep at night)? [id number] [email or web address] Information not available 05/14/2023 Family History Relationship Description Onset Age of this Age Resolved Age Notes LastModified by Organization Details LastModified Time Father Heart disease [email or web address] Not available 05/14 14:01:20 Notes:Father: Cardiovascular disease Medical History Condition Response Allergies (Food, seasonal, environmental ) N Other N Breast Cancer N Drug/Latex Allergies/Reactions N Blood Transfusion N Dermatologic Disorders N Lung Disease N Defects or Inherited Disease Y Breast Problem Y Gestational Diabetes N Hematologic disorders N Anesthesia Complications N History of STI N Deep Vein Thrombosis Y Polycystic ovary syndrome N Anxiety Disorder N Autoimmune disease N Arthritis N Infertility N Polyps N Acid Reflux (GERD) N History of abnormal pap N Cancer N Stroke N Varicosities N Neurologic/Epilepsy Y Endometriosis N High Cholesterol Y Headaches N Fibromyalgia N Kidney Disease N Heart Problems N Kidney or Bladder Problems Y Thyroid Problems Y GI Problems Y Eating Disorder N Anemia N Art (IVF or FET) N Psychiatric Illness N Ovarian Cancer N Diabetes N Pulmonary (TB, Asthma) Y Hepatitis/Liver Disease N No Past Medical History N Eczema N Urinary Tract Infection N Abuse/Domestic Violence N Asthma N Trauma/Violence N Depression/ depression N Heart Disease N Pre-Eclampsia N Hypertension Y Osteoporosis Y Thrombophilias N Gynecological History Statement/Question Response Abnormal Pap N Date of Last Mammogram 07/17/2019 Date of LMP 06/25/1999 STIs/STDs N 06/25/2020 13 Current Control Method Menopause If Post Menopausal, Age at Menopause [age] Sexually Active? N Date of DEXA bone scan 04/27/2016 Age of first menstrual cycle 13 Date of Last Pap Smear 05/12/2021 Sexual Problems? N Desired Control Method Sterilizati on LMP Approximate Obstetrics History GPAL:G 2 P 1 0 1 1 Type Value Full Term 1 Spontaneous 1 Living 1 Total 2 Past Encounters Encounter ID Performer Location Encounter Start Date Encounter Closed Date Diagnosis/Indication Diagnosis SNOMED-CT Code Diagnosis ICD10 Code Diagnosis Note [id number] [facility] [address] [address] 05/12/2021 14:23:25 05/12/2021 15:50:13 Urinary symptoms 017540224 R39.9 Will ensure urinen cx is neg Gynecologi c examination 95673899 Z01.419 Take Calcium with Vitamin D 12-1500mg daily. Do monthly self breast exams. It is advised to get annual flu shot in the fall and she could obtain at [facility] or [facility] take care clinic. If you haven't received the Tdap vaccine in the last 10 years you should obtain one as well. Have mammogram yearly, bone density every 2-3 years and colonoscop y every 5-10 years depending on findings and history. Engage in daily exercise of low impact aerobic exercise 45-60 minutes 4-5 times weekly. Avoid tobacco and illicit drugs as well as using moderation with alcohol intake less than 1-2 8 oz beverages daily. This lifestyle behavior pattern will lead to less health conditions and longer life span. If BMI greater than 25 weight watchers or dietary consult advised. Questions have been answered. Patient appears to understand instructio ns, but if you have any further questions call or respond to this email USPSTF recommends against screening for cervical cancer in women older than 65yo who have had adequate prior screening & are not otherwise at high risk for cervical cancer. Not SA currentlyN ot [facility] ipDeclined need std screenMamm o orderedCol on-2017Dex a- 2020 PCP managedPap /hpv d/c per asccp unless otherwise indicated. Atrophic vaginitis 34425 000 N95.2 Very small amount of vulvar irritation on clitoral gray.Wears a panty liner daily in case she has a few dribbles. No prominent DARIN but just in case. AdvisedVCG 's, daily mostiruzin g, not wearing panty liner at night; and use onintment sparingly to avoid thinning of vulvar skin and rebound effect from too frequent use.On blood thinnersCa ll if any continued issues. [id number] DOUGIE Mcgrath [place] [address] [address] 05/14/2023 14:14:22 05/14/2023 15:17:18 Pain in pelvis 25438774 R10.2 This patient is a 77 -year-old female with pelvic pain. We have agreed to complete the evaluation with pelvic ultrasound . The patient will return after the pelvic ultrasound to discuss those findings and to develop a treatment plan. A comprehens kenji history and physical exam was performed today. We spent over 25 minutes face-to-fa ce. The patient was given precaution s. She will contact clinic if pelvic pain increases in frequency or intensity. Also notify clinic of any new symptoms associated with pelvic pain. She does not appear to have an acute pelvic infection today, but was asked to contact us Immediatel y with nausea, vomiting, fever, chills. pelvic u/s ordereduri ne cx sentwill reach out to pt with pelvic u/s result - encouraged f/u with PCP/GI for further evaluation of possible GI source [id number] Akash Melendez MD [place] [address] [address] 05/24/2023 14:21:49 05/24/2023 15:06:08 Pain in pelvis [id number] R10.2 Health Concerns Section Related Observation LastModified by Organization Detai ls LastModified Time None Recorded Concern Status LastModified by Organization Details LastModified Time None Recorded Advance Directives Directive None Recorded Payers Encounter Date Sequence Insurance Name Policy Number Policy Werner Covered Member ID Werner Member ID Guarantor Name 05/12/2021 1 [place] Lidia J Ozuna [id number] Lidia Ozuna 05/12/2021 2 [employer] [place] (MEDICARE SUPPLEMENT) Lidia Ozuna [id number] Lidia Ozuna 05/14/2023 1 [place] Lidia J Ozuna [id number] Lidia Ozuna 05/14/2023 2 [employer] [place] (MEDICARE SUPPLEMENT) Lidia Ozuna [id number] Lidia Ozuna 05/24/2023 1 [place] Lidia J Ozuna [id number] Lidia Ozuna 05/24/2023 2 [employer] [place] (MEDICARE SUPPLEMENT) Lidia Ozuna [id number] Lidia Ozuna Notes Date Note Type Note Provider Name and Address Organization Details Recorded Time 1 text/html Annual Department Manager Post-MenopausalReported bypatient.Menopausal Symptoms:no menopausal symptoms; normal vaginal lubrication Vaginal Bleeding:history of menopause having occurred; no history of post menopausal bleeding Urinary Symptoms:no hematuria; no incontinence; no nocturia; no urinary frequency Vulva:no genital lesion; no vulvar atrophy Vagina:normal vaginal discharge; no vaginal atrophy Breast:no breast lump; no nipple discharge; no breast pain Sexual Complaints:no sexual complaints Psychological Symptoms:no depression; no anxiety Preventive Measures:encourage regular mammograms starting age 40; encourage self breast examination; encourage regular exercise; encourage no tobacco use; needs to schedule mammogram; history of recent colonoscopy Chantelle Mccormack, DOUGIE-BC [address], [place], [address], [facility] 05/12/2021 15:09:49 3 text/html 77yo [id number] femalepresents for evaluation of right sided pelvic painsymptoms present 4-5 monthsdull, ache that comes and goesworse with activityconstipation off and onno urinary symptomsneg n/v/fneg flank painsneg d/c, odors, itchingnot SA hx of DVT, on DOUGIE Lee [address], [place], [address], [facility] 05/14/2023 15:16:17 OBGyn Episode Ob Episode Information Episode Created Date Number of Fetuses Patient Bloodtype Patient rh Status Prepregnancy Weight lbs Domestic Partner Domestic Partner Phone Father Name Beef Selector Status 05/14/20 23 1 CLOSED Fetus Data First Name Last Name Admitted to NICU Weight (g) Sex Living Outcome Pediatric Complications Fetus ID Race Codes Race Delivery Type , Spontane ous [id number] James Calculation Initial James Date Initial Exam Date Initial Exam Provider Initial Ultrasound Date Last Menstrual Period Date Ultra Sound Weeks Gestation 0 Eighteen To Twenty Week James Update Ultra Sound Date Fundal Height At Umbil Quickening Date Ultra Sound Latest Weeks Gestation Final James Confirmed By Final James Confirmed Date Final James Date Ultra Sound Latest Days Gestation 0 0 Menstrual History Last Menstrual Date Menses Monthly On Bcp Conception Prior Menses Frequency Hcg Plus Date Menarche Onset Age Delivery Information Delivery Date Delivery Type Labor Anesthesia Weeks Gestation Incision Type Labor Labor Length Hrs Delivered By Post Complications Tubal Sterilization Discharge Date Comments 7 Discharge Information Feeding Method Contraceptive Method Maternal HG B and HCT Levels Ob Episode Information Episode Created Date Number of Fetuses Patient Bloodtype Patient rh Status Prepregnancy Weight lbs Domestic Partner Domestic Partner Phone Father Name Beef Selector Status 05/14/20 23 1 CLOSED Fetus Data First Name Last Name Admitted to NICU Weight (g) Sex Living Outcome Pediatric Complications Fetus ID Race Codes Race Delivery Type [phone] M Full Term [id number] Primary James Calculation Initial James Date Initial Exam Date Initial Exam Provider Initial Ultrasound Date Last Menstrual Period Date Ultra Sound Weeks Gestation 0 Eighteen To Twenty Week James Update Ultra Sound Date Fundal Height At Umbil Quickening Date Ultra Sound Latest Weeks Gestation Final James Confirmed By Final James Confirmed Date Final James Date Ultra Sound Latest Days Gestation 0 0 Menstrual History Last Menstrual Date Menses Monthly On Bcp Conception Prior Menses Frequency Hcg Plus Date Menarche Onset Age Delivery Information Delivery Date Delivery Type Labor Anesthesia Weeks Gestation Incision Type Labor Labor Length Hrs Delivered By Post Complications Tubal Sterilization Discharge Date Comments 9 Discharge Information Feeding Method Contraceptive Method Maternal HG B and HCT Levels
--- OUTSIDE RECORDS SUMMARY | 2024-12-01 15:50 | XMS_ITS | Encounter Summary ---
Author Organization [facility] Address [address] [place] [address] Care Team Providers Care Alumni Relations Coordinator Name Role Phone Mariaa Joiner DO Primary Care Provider Encounter Details Date Type Department Care Team (Late st Contact Info) Description 03/24/2021 Lab Requisition [facility] [address] [place] [address] Jay Jay Whitley MD [address] [place] [address] Social History Tobacco Use Types Packs/Day Years Used Date Smoking Tobacco: Never Assessed Comments Unknown Sex and Gender Information Value Date Recorded Sex Assigned at Not on file 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 Gender Identity Not on file Sexual Orientation Not on file documented as of this encounter Plan of Treatment Not on file documented as of this encounter Procedures Procedure Name Priority Date/Time Associated Diagnosis Comments DERMATOPATHOLOGY Routine 03/23/2021 3:33 AM CDT documented in this encounter Results * DERMATOPATHOLOGY (03/23/2021 3:33 AM CDT) Case Report Dermatopathology Report Case: [id number] Authorizing Provider: Jay Jay Whitley MD Collected: 03/23/2021 03:33 AM Ordering Location: [facility] Received: 03/24/2021 06:14 AM Pathologist: Mikala Ridley MD Specimens: A) - Skin, left gluteal B) - Skin, right cheek 1:41 PM CDT DERMATOPATHOLOGY LABORATORY Final Diagnosis Specimen A. SKIN, left gluteal: EPIDERMOID CYST (L72.0) PRESENT AT MARGIN Specimen B. 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 Cyst. Path# [id number]. Check margins. B: BCCA vs milia. Path# [id number]. 1:41 PM [facility] DERMATOPATHOLOGY LABORATORY Gross Description Specimen A: Received is one formalin filled container labeled with the patient's name and designated left gluteal. The specimen consists of a 75p6x6zb piece of skin. The margin is inked green. The specimen is bisected and submitted in cassette 1. Jar 0. Specimen B: Received is one formalin filled container labeled with the patient's name and designated right cheek. The specimen consists of a punch biopsy measuring 0m8m5dw, bisected. Jar 0. 1:41 PM [facility] DERMATOPATHOLOGY LABORATORY Microscopic Description Specimen A. SKIN, left gluteal: Within the dermis, there is a space lined by epithelium that resembles normal epidermis and the infundibular portion of the hair follicle. This lesion is present at the margin of the specimen. Specimen B. 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 1:41 PM [facility] DERMATOPATHOLOGY LABORATORY Disclaimer An external and internal positive and negative controls are appropriate for the histochemical, immunohistochemical and immunofluorescence stain(s) in this case (if any), except where stated explicitly. The performance characteristics of the stain(s) cited in this report were developed and its performance characteristic determined by the Dermatopathology Laboratory at [facility], directed by Dr. Zi Fernández. These tests need not be, and therefore are not, approved by the [place] Food and Drug Administration. The tests are used for clinical purposes. Billing Codes Specimen Charges Stain Charges 45409 92965 1 1 1:41 PM CDT DERMATOPATHOLOGY LABORATORY Embedded Images 1:41 PM [facility] DERMATOPATHOLOGY LABORATORY Pathology/Cytology TISSUE SPECIMEN FROM SKIN / Unknown 03/23/2021 3:33 AM CDT 03/24/2021 6:14 AM CDT Miscellaneous samples (specimen) TISSUE SPECIMEN FROM SKIN / Unknown 03/23/2021 3:33 AM CDT 03/24/2021 6:14 AM CDT us Jay Jay Whitley MD LAB - PATHOLOGY/CYTOLOGY ORDER TONI Final Result DERMATOPATHOLOGY LABORATORY [facility] - Department of Dermatology [facility] Specialized Medicine [address] [place] [address], [address] [phone] documented in this encounter Visit Diagnoses Not on filedocumented in this encounter Care Teams Alumni Relations Coordinator Relationship Specialty Start Date End Date Mariaa Joiner DO PCP - General 12/22/19 documented as of this encounter
--- OUTSIDE RECORDS SUMMARY | 2024-12-01 15:50 | XMS_ITS | Encounter Summary ---
Author Organization [facility] Address [address] [place] [address] Care Team Providers Care Lan Engineer Name Role Phone Mariaa Joiner DO Primary Care Provider [phone] Encounter Details Date Type Department Care Team (Late st Contact Info) Description 12/22/2019 Lab Requisition [facility] [address] [place] [address] Jay Jay Whitley MD [address] [place] [address] Social History Tobacco Use Types Packs/Day Years Used Date Smoking Tobacco: Never Assessed Comments Unknown Sex and Gender Information Value Date Recorded Sex Assigned at Not on file 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 Gender Identity Not on file Sexual Orientation Not on file documented as of this encounter Plan of Treatment Not on file documented as of this encounter Procedures Procedure Name Priority Date/Time Associated Diagnosis Comments DERMATOPATHOLOGY Routine 12/18/2019 12:0 0 AM CDT documented in this encounter Results * DERMATOPATHOLOGY (12/18/2019 12:00 AM CDT) Case Report Dermatopathology Report Case: [id number] Authorizing Provider: Jay Jay Whitley MD Collected: 12/18/2019 12:00 AM Ordering Location: [facility] Received: 12/22/2019 06:42 AM Pathologist: Mikala Ridley MD Specimen: Skin, left upper back 0 3:26 PM CDT DERMATOPATHOLOGY LABORATORY Final Diagnosis Specimen A. SKIN, left upper back: ACTINIC KERATOSIS (L57.0) 0 3:26 PM CDT DERMATOPATHOLOGY LABORATORY at 1526 CDT Clinical History Irr SK vs SCCA. Path#[id number] 0 3:26 PM CDT DERMATOPATHOLOGY LABORATORY Gross Description Specimen A: Received is one formalin filled container labeled with the patient's name and designated left upper back. The specimen consists of a shave biopsy measuring 7x6x1 mm. Jar 0. 0 3:26 PM CDT DERMATOPATHOLOGY LABORATORY Microscopic Description Specimen A. SKIN, left upper back: There is focal parakeratosis. The lower half of the epidermis shows disorderly maturation of keratinocytes with nuclear pleomorphism. 0 3:26 PM CDT DERMATOPATHOLOGY LABORATORY Disclaimer An external and internal positive and negative controls are appropriate for the histochemical, immunohistochemical and immunofluorescence stain(s) in this case (if any), except where stated explicitly. The performance characteristics of the stain(s) cited in this report were developed and its performance characteristic determined by the Dermatopathology Laboratory at [facility], directed by Dr. Zi Fernández. These tests need not be, and therefore are not, approved by the [place] Food and Drug Administration. The tests are used for clinical purposes. Billing Codes Specimen Charges Stain Charges 02803 1 0 3:26 PM CDT DERMATOPATHOLOGY LABORATORY Embedded Images 0 3:26 PM CDT DERMATOPATHOLOGY LABORATORY Pathology/Cytolog y TISSUE SPECIMEN FROM SKIN / Unknown 12/18/2019 12/22/2019 6:42 AM CDT us Jay Jay Whitley MD LAB - PATHOLOGY/CYTOLOGY ORDER TONI Final Result DERMATOPATHOLOGY LABORATORY [facility] - Department of Dermatology [facility]/[address] [phone] documented in this encounter Visit Diagnoses Not on filedocumented in this encounter Care Teams Lan Engineer Relationship Specialty Start Date End Date Mariaa Joiner DO PCP - General 12/22/19 documented as of this encounter
--- OUTSIDE RECORDS SUMMARY | 2024-12-01 15:50 | XMS_ITS | Clinical Summary ---
Author Organization [facility] Address [address] [facility] [place] [address] Care Team Providers Care Pig Furnace Operator Name Role Phone Mariaa Joiner DO Primary Care Provider [phone] Source Comments [facility],non-owned Affiliates and Associated Physician Practices is amultiple site organization consisting of ambulatory clinics and hospital sitesin [place], [place], [place] and [place]. This disclosure is being madepursuant to the Care Everywhere program and may not contain all information available regarding this patient. 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 Gender Identity Not on file Sexual Orientation Not on file Plan of Treatment Health Maintenance Due Date Last Done Comments BONE DENSITY TESTING 1945 MEDICARE AWV 12 MONTHS 1945 HEPATITIS C SCREENING 07/04/1964 DTAP/TDAP/TD VACCINES (1 - Tdap) 1965 PNEUMOCOCCAL VACCINE 50+ (1 of 1 - PCV) 1996 ZOSTER VACCINE (1 of 2) 1996 Respiratory Syncytial Virus (RSV) Vaccine Pt: or over 60 yrs (1 - 1-dose 75+ series) 2021 COVID-19 VACCINE ( - 2023-2 5 season) 2024 DEPRESSION SCREENING 06/25/2024 INFLUENZA VACCINE (Season Ended) 2025 HEPATITIS B VACCINE Aged Out No longe r eligible based on patient's age to complete this topic HIB VACCINE Aged Out No longer eligi ble based on patient's age to complete this topic HPV VACCINE Aged Out No longer eligi ble based on patient's age to complete this topic MENINGOCOCCAL (Group B) VACC INE SHARED DECISION-MAKING Aged Out No longer eligibl e based on patient's age to complete this topic MENINGOCOCCAL GROUPS A/C/Y/W VACCINE Aged Out No longer eligible b ased on patient's age to complete this topic Insurance MEDICARE MEDICARE [facility] Care Teams Pig Furnace Operator Relationship Specialty Start Date End Date Mariaa Joiner DO PCP - General 12/22/19
--- OUTSIDE RECORDS SUMMARY | 2024-12-01 15:50 | XMS_ITS | Data Portability ---
Author Organization [employer], Main Office Address [address] [place] [address] Care Team Providers Care Training Engineer Name Role Phone MARIAA WYATT Primary Care Provider MARIAA WYATT Referring Provider Assessment Encounter Date Assessment Date Assessment LastModified by Organization Details LastModified Time 11/16/2022 11/16/2022 This note is dictated and transcribed by [employer]. Host variances may occur. Despite proofreading, typographical errors may occur. [email or web address] Not available 11/16/2022 16:55:35 Plan of Treatment Reminders Order Date Submit Date Provider Last Modified By Organization Details Last Modified Time Details Appointments None record ed. Lab None record ed. Referral None record ed. Procedures None record ed. Surgeries None record ed. Imaging XR, foot, 3 or more view 023 12/21/19 23 [email or web address] [facility] ([facility] [address] [place], [address], 3 09:51:40 Medication Orders None record ed. Patient TargetsNo targets recorded. Patient InstructionsNo instructions recorded. Reason for Referral None Reported. Problems Name Problem SNOMED Code Status Onset Date Resolution Date Notes Provider Name and Address Organization Details Recorded Time Deep venous thrombosis 415022005 Active Not Available [facility] 3 06:56:43 Gastroesop hageal reflux disease 631115402 Active Not Available [employer] 3 06:56:43 Limited lupus erythemato bienvenido 892480642 Active Not Available [facility] 3 06:56:43 Edema 734873797 Active Not Available [employer] 3 06:56:43 Knee pain Active Not Available [facility] 3 06:56:43 Vitamin D deficiency 32821346 Active Not Available [facility] 3 06:56:43 Sinusitis 37977611 Active Not Available [facility] 3 06:56:43 Migraine 68213921 Active Not Available [facility] 3 06:56:43 Hypothyroi dism 00830603 Active Not Available [facility] 3 06:56:44 Acute urinary tract infection 021435212 Active Not Available [facility] 3 06:56:44 Cough 59216208 Active Not Available [facility] 3 06:56:44 Upper respirator y infection 76767558 Active Not Available [facility] 3 06:56:44 Hyperlipid emia 50606370 Active Not Available [facility] 3 06:56:44 Pulmonary embolism 42177406 Active Not Available [facility] 3 06:56:44 Essential hypertensi on 04919634 Active Not Available [facility] 3 06:56:44 Allergic rhinitis 29427973 Active Not Available [facility] 3 06:56:44 Urinary tract infectious disease 31761013 Active Not Available [facility] 3 06:56:44 Brachial neuritis 36625796 Active Not Available [facility] 3 06:56:44 Loose body in knee 19679570 Active Not Available [facility] 3 06:56:44 Chronic rhinitis 47654910 Active Not Available [facility] 3 06:56:44 Pain in both feet 8857934480196 9102 Active 2022 David Irvin DPM [address], [address], [place], [address] , [facility] [employer] [facility] 3 16:53:28 Congenital pes cavus 640337097 Active 2022 David Irvin DPM [address], [address], [place], [address] , [facility] [employer] [facility] 3 16:56:00 Problem Notes None recorded. Procedures Surgical History Date Name Laterality Status Provider Name and Address Organization Details Recorded Time procedure on urinary bladder completed Yulia Mur[facility] 11/16/2022 16:33:57 delivery completed Yulia Murrieta [facility] 11/16/2022 16:34:13 Tubal Ligation completed Yulia [facility] 11/16/2022 16:34:41 repair [facility] tendo achilles [facility] 11/16/2022 16:35:03 Breast Biopsy [facility] 11/16/2022 16:35:31 Rotator cuff surgery completed Yulia Murrieta [facility] 11/16/2022 16:35:40 Back Surgeries [facility] 11/16/2022 16:35:45 EGD completed [facility] 11/16/2022 16:35:55 colonoscopy completed [facility] 11/16/2022 16:36:03 Xcapsl ctrc rmvl cplx wo ecp completed [facility] 11/16/2022 16:36:12 Foot Surgery completed Yulia [facility] 11/16/2022 16:36:23 Bypass completed Yulia Murrieta [facility] 11/16/2022 16:36:33 Retina completed [facility] 11/16/2022 16:36:44 Imaging Results None recorded. Procedure Notes None recorded. Medical Equipment None Reported. Allergies Allergen ID Allergen Name Allergen Category Reaction Reaction Severity Criticality Documentation Date Start Date Code Code System Note Provider Name and Address Organization Details Recorded Time 69900 Zocor medicatio n myalgias (muscle pain) Not available Not available 08/23/2022 76992 3 RxNorm Not Available [facility] 3 07:00:16 85589 acetamino phen / hydrocodo ne medicatio n nausea vomiting Not available Not available Not available 08/23/2022 95003 2 RxNorm Not Available [facility] 3 07:00:16 14694 Rocephin medicatio n rash Not available Not available 08/23/2022 9449 RxNorm Not Available [facility] 3 07:00:16 76185 Pravachol medicatio n myalgias (muscle pain) Not available Not available 08/23/2022 41711 3 RxNorm Not Available [facility] 3 07:00:16 16752 Naprosyn medicatio n other Not available Not available 08/23/2022 2 RxNorm SICK Not Available [facility] 3 07:00:16 76331 Lipitor medicatio n chest pain Not available Not available 08/23/2022 66785 5 RxNorm Not Available [facility] 3 07:00:16 95748 Elavil medicatio n other Not available Not available 08/23/2022 95021 RxNorm ELAVI L Not Available [facility] 3 07:00:17 37253 Cymbalta medicatio n other Not available Not available 08/23/2022 25052 4 RxNorm TIRED Not Available [facility] 3 07:00:17 00671 Crestor medicatio n myalgias (muscle pain) Not available Not available 08/23/2022 06643 4 RxNorm Not Available [facility] 3 07:00:17 67618 codeine medicatio n nausea vomiting Not available Not available Not available 08/23/2022 2670 RxNorm Not Available [facility] 3 07:00:17 95683 tramadol medicatio n nausea Not available Not available 08/23/2022 24473 RxNorm Not Available [facility] 3 07:00:17 36049 Cipro medicatio n Not available Not available Not available 08/23/2022 92572 3 RxNorm Pt state s this is not an aller gy Not Available [facility] 3 07:00:17 Medications Name Sig Start Date Stop Date Status Note LastModified by Organization Details LastModified Time cyclobenz aprine 10 mg tablet TK 1 T PO Q 8 H PRN 05/15 completed Not Available Not Available Not Available amoxicill in 500 mg capsule 05/15 completed Not Available Not Available Not Available hydrocodo ne 7.5 mg-ibupro fen 200 mg tablet active Not Available Not Available No t Available prednison e 10 mg tablet Take by oral route. active Not Available Not Available No t Available doxycycli ne hyclate 100 mg capsule Take 1 capsule twice a day by oral route. active advise pt to stop calcium while on this Not Available Not Available Not Available clindamyc in HCl 300 mg capsule 05/15 completed Not Available Not Available Not Available trazodone 50 mg tablet TK 1 T PO QHS active Not Available Not Available No t Available azithromy dangelo 250 mg tablet Take 2 TABLET EVERY DAY by oral route for 1 day then take 1 daily for 4 days active Not Available Not Available No t Available fluconazo le 150 mg tablet active Not Available Not Available Not Available valacyclo vir 1 gram tablet TAKE 1 TABLET BY MOUTH EVERY DAY active Not Available Not Available No t Available hydrocodo ne 5 mg-acetam inophen 325 mg tablet active sick stomach Not Available Not Available Not Available phenazopy ridine 200 mg tablet TK 1 T PO Q 8 H PRN active Not Available Not Available No t Available Elidel 1 % topical cream active Not Available Not Available Not Available alendrona te 70 mg tablet TK 1 T PO Q WEEK 05/15 completed Not Available Not Available Not Available clobetaso l 0.05 % topical cream APPLY TO AFFECTED AREA TWICE A DAY NEEDED FOR RASH active Not Available Not Available No t Available hydroxyzi ne pamoate 50 mg capsule TK 1 TO 2 CS PO HS PRN 05/15 completed Not Available Not Available Not Available metronida zole 500 mg tablet active Not Available Not Available No t Available prochlorp erazine maleate 10 mg tablet Take 1 tablet 3 times a day by oral route. active takes PRN Not Available Not Available Not Available acyclovir 400 mg tablet TAKE 1 TABLET BY MOUTH TWICE DAILY active Not Available Not Available No t Available ciproflox acin 500 mg tablet 05/15 completed Not Available Not Available Not Available sulfameth oxazole 800 mg-trimet hoprim 160 mg tablet TAKE 1 TABLET BY MOUTH TWICE A DAY active Not Available Not Available No t Available omeprazol e 40 mg capsule,d elayed release TAKE 1 CAPSULE BY MOUTH EVERY DAY active Not Available Not Available No t Available tramadol 50 mg tablet TAKE 1 TABLET BY MOUTH FOUR TIMES DAILY NEEDED FOR PAIN active Not Available Not Available No t Available acetamino phen 500 mg tablet Take 2 tablets twice a day by oral route as directed for 14 days. 10/10 completed Not Available Not Available Not Available guaifenes in 100 mg/5 mL oral liquid Take 10 mL every 6 hours by oral route as directed for 14 days. 10/10 completed Not Available Not Available Not Available triamcino lone acetonide 0.1 % topical cream AFFECTED TO RASH AND ITCH AREA SCATTERE D TO BODY TWICE A DAY NEEDED active Not Available Not Available No t Available fenofibra te micronize d 134 mg capsule active Not Available Not Available Not Available warfarin 4 mg tablet 10/24 completed Not Available Not Available Not Available levothyro xine 75 mcg tablet TAKE 1 TABLET BY MOUTH EVERY DAY active Not Available Not Available No t Available oxycodone -acetamin ophen 5 mg-325 mg tablet active Not Available Not Available Not Available amoxicill in 875 mg tablet active Not Available Not Available Not Available warfarin 6 mg tablet TK 1 T PO QD active Not Available Not Available No t Available prednisol one acetate 1 % eye drops,bienvenido penon active Not Available Not Available Not Available benzonata te 100 mg capsule TK 1 TO 2 CS PO Q 6 H PRF COUGH 05/15 completed Not Available Not Available Not Available levothyro xine 50 mcg tablet TK 1 T PO QD active Not Available Not Available No t Available cephalexi n 500 mg capsule TAKE 1 CAPSULE BY MOUTH THREE TIMES DAILY NEEDED FOR UTI active Not Available Not Available No t Available pantopraz ole 40 mg tablet,de layed release TK 1 T PO QD active Not Available Not Available No t Available warfarin 2 mg tablet TK 1 T PO QD active Not Available Not Available No t Available warfarin 5 mg tablet TK 1 T PO D active Not Available Not Available No t Available gabapenti n 300 mg capsule Take 1 capsule( s) 3 times a day by oral route for 90 days. active Not Available Not Available No t Available sertralin e 25 mg tablet TAKE 1 TABLET BY MOUTH DAILY active Not Available Not Available No t Available omeprazol e 20 mg capsule,d elayed release TK 1 C PO D active Not Available Not Available No t Available monteluka st 10 mg tablet Take 1 tablet every day by oral route. active Not Available Not Available No t Available hydrochlo rothiazid e 25 mg tablet Take 1 tablet every day by oral route for 90 days. 05/15 completed Not Available Not Available Not Available furosemid e 20 mg tablet TK 1 T PO BID 05/15 completed Not Available Not Available Not Available warfarin 1 mg tablet TK UTD active Not Available Not Available Not Available hydroxych loroquine 200 mg tablet TK 1 T PO BID 05/15 completed Not Available Not Available Not Available Nasonex 50 mcg/actua tion [place] H[place]on 2 sprays every day by intranas al route as directed for 14 days. active Not Available Not Available No t Available cefuroxim e axetil 500 mg tablet active Not Available Not Available Not Available levofloxa dangelo 500 mg tablet TAKE 1 TABLET BY MOUTH EVERY 24 HOURS FOR 7 DAYS active Not Available Not Available No t Available methylpre dnisolone 4 mg tablets in a dose pack Take by oral route. DIRECTED PER PACK active Not Available Not Available No t Available ketoconaz ole 2 % topical cream APPLY TO AFFECTED AREA EVERY DAY 05/15 completed Not Available Not Available Not Available ondansetr on 4 mg disintegr ating tablet DISSOLVE 1 TABLET ON THE TONGUE EVERY 8 HOURS NEEDED FOR NAUSEA OR VOMITING active Not Available Not Available No t Available fluticaso ne propionat e 50 mcg/actua tion nasal spray,bienvenido pension INL 1 SPRAY IEN QD PRN 05/15 completed Not Available Not Available Not Available sertralin e 50 mg tablet active Not Available Not Available Not Available ipratropi um bromide 21 mcg (0.03 %) nasal spray U 2 SPRAYS IEN QID 05/15 completed Not Available Not Available Not Available ramipril 5 mg capsule TK ONE C PO QD active Not Available Not Available No t Available loratadin e 10 mg tablet Take 1 tablet every day by oral route with meals for 30 days. active Not Available Not Available No t Available ramipril 10 mg capsule TK 1 C PO QD active Not Available Not Available No t Available enoxapari n 120 mg/0.8 mL subcutane ous syringe INJECT 1 SYRINGE SC QAM 05/15 completed Not Available Not Available Not Available metaxalon e 800 mg tablet active Not Available Not Available Not Available Zetia 10 mg tablet TK ONE T PO QD active Not Available Not Available No t Available Vitamin D3 25 mcg (1,000 unit) tablet Take 1 tablet every day by oral route for 90 days. 2012 active Not Available Not Available Not Avai lable ketorolac 0.4 % eye drops 05/15 completed Not Available Not Available Not Available nitrofura ntoin monohydra te/macroc rystals 100 mg capsule active Not Available Not Available Not Available Pepcid active Not Available Not Availa ble Not Available Calcium 600 1 POQD 05/15 completed Not Available Not Available Not Available biotin active Not Available Not Availa ble Not Available furosemid e active Not Available Not Available Not Available multivita min active Not Available Not Available Not Available mometason e 0.1 % topical solution APPLY TO SCALP QD active Not Available Not Available No t Available Cholestyr amine Light 4 gram oral powder MIX 2 SCOOPS IN LIQUID AND DRINK QD UTD active Not Available Not Available No t Available B12 active Not Available Not Availa ble Not Available [employer]Tools 1.5 billion cell capsule Take 1 capsule every day by oral route as directed for 30 days. 10/26 completed Not Available Not Available Not Available Eliquis 2.5 mg tablet TAKE 1 TABLET BY MOUTH TWICE DAILY active Not Available Not Available No t Available calcium 166.6 mg-vit D2 4.15 mcg-magne sium 83.3 mg-vit C-K2-min tablet Take by oral route. active Not Available Not Available No t Available Vitals Date Recorded Heart rate Respiratory rate Oxygen saturation Oxygen saturation in Arterial blood by Pulse oximetry Systolic blood pressure Diastolic blood pressure Provider Name and Address Organization Details Last Updated DateTime 3 76 /min 14 /min 98 % 98 % 124 mm[Hg] 73 mm[Hg] Yulia Aly [employer] 3 16:49:02 Date Recorded Heart rate Respiratory rate Oxygen saturation Oxygen saturation in Arterial blood by Pulse oximetry Systolic blood pressure Diastolic blood pressure Provider Name and Address Organization Details Last Updated DateTime 3 73 /min 14 /min 98 % 98 % 90 mm[Hg] 70 mm[Hg] Yulia SCOTT [employer] 3 15:27:18 Social History Question Answer Notes LastModified by Organizat ion Details LastModified Time Tobacco Smoking Status Never Smoker KELLY [facility] 11/16/2022 16:33:11 What Is Your Level Of Caffeine Consumption? Occasional Information not available 11/16/2022 What Was The Date Of Your Most Recent Tobacco Screening? 11/16/2022 Information not available 11/16/2022 Has Tobacco Cessation Counseling Been Provided? No Information not available 11/16/2022 Sex: Unknown Functional Status Question Answer Note LastModified by Organizat ion Details LastModified Time Do you use any illicit or recreational drugs? No Information not available 11/16/2022 Do you or have you ever used any other forms of tobacco or nicotine? No Information not available 11/16/2022 What is your level of alcohol consumption? None Information not available 11/16/2022 Mental Status None recorded. Family History Nothing Reported. Medical History Condition Response ARTHRITIS Y USE OF BLOOD THINNERS Y BACK / NECK PROBLEMS Y HEARTBURN / REFLUX Y BLOOD CLOTS Y Gynecological HistoryNo gynecological history recorded. Obstetrics History GPAL:G 0 P 0 0 0 0 Immunizations Vaccine Type Date Status Note Provider Nam e and Address Organization Details Recorded Time Influenza, split virus, trivalent, PF 03/28/2013 completed Not Available [facility] 2022 07:00:08 Past Encounters Encounter ID Performer Location Encounter Start Date Encounter Closed Date Diagnosis/Indication Diagnosis SNOMED-CT Code Diagnosis ICD10 Code Diagnosis Note [id number] David Irvin DPM [facility] [address] [place] [address] 11/16/2022 16:24:53 11/22/2022 19:55:19 Pain in both feet 5257102092 8116231 M79.671 M79.672 Congenital pes cavus 205 422267 Q66.70 bilateral feetRx custom orthoticsD ue to this patient's diagnosis listed above, they have been prescribed a medical necessary custom orthotics that is fabricated from a model of the patient's foot and ankle to ensure proper function, ambulation and to prevent tissue injury. This condition is lifelong it will not be reversed or resolve over time. The prognosis is good weight-frannie ring in a custom orthotics. A prefabrica guillermina orthotics is not appropriat e for this condition due to abnormal anatomy. The patient will need this Orthotic for greater than 6 months and will need to control the foot and ankle in all 3 planes of motion, sagittal, axial and coronal. The patient will need this orthotic for greater ambulatory status. [id number] David Irvin DPM [facility] [place] [address] [place] [address] 01/15/2023 15:19:04 01/15/2023 15:38:47 Congenital pes cavus [id number] Q66.70 bilateral feetRx custom orthoticsC ontinue orthoticsC ontinue supportive shoe gearFollow -up as needed Health Concerns Section Related Observation LastModified by Organization Detai ls LastModified Time None Recorded Concern Status LastModified by Organization Details LastModified Time None Recorded Advance Directives Directive None Recorded Payers Encounter Date Sequence Insurance Name Policy Number Policy Werner Covered Member ID Werner Member ID Guarantor Name 11/16/2022 1 [place] Lidia Dealick [id number] Lidia Ozuna 11/16/2022 2 [employer] - PLAN G (MEDICARE SUPPLEMENT) Lidia Dealick [id number] Lidia Dealick 01/15/2023 1 [place] Lidia Dashormick [id number] Lidia Dashormick 01/15/2023 2 [email or web address] (MEDICARE SUPPLEMENT) Lidia Ozuna [id number] Lidia Ozuna Notes Date Note Type Note Provider Name and Address Organization Details Recorded Time 11/16/2022 text/html . Patient is a 77-year-old female who presents the office with complaints of bilateral foot pain. Patient states when she is standing or walking she has pain. Patient states she is unable to walk without pain. Patient states that she has shooting, stabbing, burning, throbbing aching pain. Patient states that the pain varies and she has tried splinting, resting and ice for her discomfort. Patient states that she had previous surgery by another provider which did not heal well and David Irvin DPM [address], [address], [place], [address], [facility] 11/22/2022 16:57:19 01/15/2023 text/html . Patient is 77-year-old female who returns the office for follow-up on bilateral foot pain and pes cavus foot deformity. Patient did get a custom accommodative orthotics and states that she has done very well with them. Patient denies any wounds or in effect in the foot. Patient states she is able to walk longer without any difficulties. Patient denies any other pedal complaints. David Irvin DPM [address], [address], [place], [address], [employer] 01/15/2023 15:36:48 OBGyn Episode No OBEpisode recorded.
--- OUTSIDE RECORDS SUMMARY | 2024-12-01 15:50 | XMS_ITS | Clinical Summary ---
Author Organization [facility] Juany vela Shashi Address [address] [place] [address] Care Team Providers Care Preschool Paraprofessional Name Role Phone Unavailable Primary Care Provider Unavailabl e Allergies Active Allergy Reactions Criticality Noted Date Comments Codeine Nausea and Vomiting Low 02/13/2022 Reaction: VOMITING, Reaction: VOMITING, Reaction: VOMITING, Reaction: VOMITING, Reaction: VOMITING, Medications apixaban (Eliquis) 5 mg tablet Eliquis 5 mg tablet take 1 tablet by oral route 2 times every day Active omeprazole (PriLOSEC) 20 mg Capsule, Delayed Release(E.C.) every 24 hours. Active valACYclovir (VALTREX) 1 gram tablet Take 1,000 mg by mouth 2 times daily. Active famotidine (PEPCID) 10 mg tablet Take 10 mg by mouth 2 times daily. Active loperamide (IMODIUM) 2 mg capsule Take 2 mg by mouth 1 time daily as needed. Active furosemide (LASIX) 20 mg tablet Take 20 mg by mouth daily. Active levothyroxine 100 mcg tablet Take 100 mcg by mouth daily in the morning. Active traMADoL (ULTRAM) 50 mg tablet Take by mouth every 6 hours as needed for Pain. Active gabapentin (NEURONTIN) 100 mg capsule Take 100 mg by mouth 3 times daily. Active calcium citrate 250 mg calcium Tablet Take 250 mg by mouth daily. Active multivitamin (DAILY-MICA) tablet Take 1 Tablet by mouth daily. Active cyanocobalamin 1,000 mcg Tablet Take 1,000 mcg by mouth daily. Active biotin 1 mg Capsule Take by mouth. Active sertraline (ZOLOFT) 25 mg tablet Take 25 mg by mouth daily. 12/15/2022 Active Active Problems Problem Noted Date Diagnosed Date Leukopenia 02/13/2022 Chronic anemia 02/13/2022 Encounters Date Type Department Care Team Description 11/13/2024 External Device Data [facility] ABSTRACTION Provider, Abstract 11/11/2024 External Device Data [facility] ABSTRACTION Provider, Abstract from Last 3 Months Family History Medical History Relation Name Comments Heart Disease Father Relation Name Status Comments Father Mother Sister 1 Sister 2 Sister 3 Sister 4 Alive Social History Tobacco Use Types Packs/Day Years Used Date Smoking Tobacco: Never Smokeless Tobacco: Never Tobacco Cessation:Counseling Given: Not Answered Alcohol Use Standard Drinks/Week Comments Never 0 (1 standard drink = 0.6 oz pur e alcohol) Comments Unknown Sex and Gender Information Value Date Recorded Sex Assigned at Not on file Legal Sex Female 9:56 AM CDT Gender Identity Not on file Sexual Orientation Not on file Last Filed Vital Signs Vital Sign Reading Time Taken Comments Blood Pressure 97/64 12/03/2023 1:04 PM CDT Pulse 70 12/03/2023 1:04 PM CDT Temperature 36 C (96.8 F) 12/03/2023 1:04 PM CDT Respiratory Rate 14 12/03/2023 1:04 PM CDT Oxygen Saturation 95% 12/03/2023 1:04 PM CDT Inhaled Oxygen Concentration - - Weight 70.8 kg (156 lb) 12/03/2023 1:04 PM CDT Height 147.3 cm (4' 10) 03/01/2022 1:07 PM CDT Body Mass Index 32.6 03/01/2022 1:07 PM CDT Plan of Treatment Upcoming Encounters Date Type Department Care Team (Late st Contact Info) Description 12/08/2024 1:00 PM CDT Office Visit [facility] Oncology and Hematology - Jude [address] [facility] [address] [place] [address] Romeo Childs MD [address] [facility] [address] [place] [address] Health Maintenance Due Date Last Done Comments DTAP/TDAP/TD VACCINES (1 - Tdap) 1964 Traditional Medicare (ACO) A nnual Wellness Visit 1964 PNEUMOCOCCAL VACCINE 50+ YEA RS (1 of 1 - PCV) 1996 ZOSTER VACCINE (1 of 2) 1996 RSV VACCINE (60+ or ) (1 - 1-dose 75+ series) 2021 INFLUENZA VACCINE (#1) 2024 03/28/2013 OSTEOPOROSIS SCREENING 11/02/2027 11/01/2022, 2020 [place] [address] MEDICARE PART A AND B FORMERLY [facility]
[2024-12-01 16:49] LABS: Alanine Aminotransferase 14 U/L (6-35); Albumin Level 3.6 g/dL (3.5-5.1); Alkaline Phosphatase 63 U/L (38-126); Anion Gap 6 mmol/L (4-12); Aspartate Amino Transferase 35 U/L (14-36); Bilirubin,Total 0.7 mg/dL (0.2-1.3); Blood Urea Nitrogen 17 mg/dL (7-17); Carbon Dioxide 25 mmol/L (22-30); Chloride 108 mmol/L (98-107); Estimated Glomerular Filt Rate > 60; Glucose 92 mg/dL (65-110); Potassium 3.8 mmol/L (3.4-5.0); Sodium 139 mmol/L (137-145); Total Protein 6.5 g/dL (6.3-8.2)
== END 2024-12-01 14:41 | disposition home or self-care (01) ==
LOC: ANHLAB 14:41
PROVIDERS: PCP Internal Medicine; Visit Provider Internal Medicine Hematology & Oncology
DX: D64.9 Anemia, unspecified (principal)
CPT/HCPCS: 36415; 80053; 82607; 85025

== ENCOUNTER 2025-04-27 14:32 | Outpatient (CLI) | payer MEDICARE, SELFPAY ==
--- NOTE | ~2025-04-27 | MM_ITS ---
EXAMINATION: MM screening [facility] BI w [place] HISTORY: Screening TECHNIQUE: Craniocaudal and mediolateral oblique 3-D tomosynthesis images were obtained and synthetic 2-D images were generated. CAD analysis was submitted and interpreted. COMPARISON: Comparison to multiple prior studies sequentially, with oldest reviewed study dated 08/13/2020. BREAST PARENCHYMAL COMPOSITION: There are scattered areas of fibroglandular density. FINDINGS: There is no evidence of suspicious mass, calcification, or architectural distortion to suggest malignancy in either breast. Scattered benign-appearing calcifications are present. IMPRESSION: 1. No mammographic evidence of malignancy. 2. Recommend routine screening mammography in one year. BI-RADS Category 2: Benign finding(s). Reviewed, dictated and finalized at location B. 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
== END 2025-04-27 14:33 | disposition home or self-care (01) ==
LOC: ANHFOHIMG 14:33
PROVIDERS: PCP Internal Medicine; Visit Provider Internal Medicine
DX: Z12.31 Encounter for screening mammogram for malignant neoplasm of breast (principal)
CPT/HCPCS: 77063; 77067